=== PATIENT | male | born 1950 | race Caucasian/White ===

== ENCOUNTER 2024-08-05 12:08 | Inpatient (IN) | payer MEDICARE ==
[2024-08-05] VITALS (14 sets, daily range): BP systolic 116–151; BP diastolic 57–85; PULSE 83–120; RESP 14–23; TEMP 98.4; O2SAT 97–98
[~2024-08-05] VITALS: Ht 167.6 cm; Wt 68.5 kg
--- NOTE | 2024-08-05 12:24 | EKG ---
[facility] Test Date: 2024-08-05 Test Time: 12:18:02 Pat Name: ANDREEA JOSEPH Department: [facility] Room: 219 Gender: M Review Rn: [id number] : 1950 Requested By: SCOTT STEPHENS Order Number: [id number] Reading MD: Toy Randall Measurements Intervals [place] Rate: 157 P: 0 AR: 76 QRS: 33 QRSD: 94 T: -1 QT: 305 QTc: 492 Interpretive Statements Supraventricular tachycardia Repolarization abnormality, prob rate related No previous ECG available for comparison Electronically Signed On 08-08-2024 16:00:02 SHEEP KILLER by Toy Randall Please click the below link to view image of tracing.
[2024-08-05] MEDS: 0.9% NACL 500ML IV.SOLN 500 ML IV ONE (12:33)
--- NOTE | 2024-08-05 12:34 | ERN ---
ED Note History of Present Illness Stated Complaint: DEHYDRATED Chief Complaint: Nausea,Vomiting,Diarrhea Time Seen by MD: 12:14 Time Seen by Midlevel: 12:20 Dictation: Mr. Stevenson is a 74 year old gentleman (winter [place] from [place]) with history of atrial fibrillation, hypertension, hyperlipidemia, and type 2 diabetes who presented to the emergency department this afternoon for evaluation of tachycardia. He has been experiencing fatigue, general weakness, nauseas, and vomiting. He initially attributed symptoms to his medication; Ozempic. He has been seen multiple times at [facility] and was prescribed some Zofran. He continues with nausea/vomiting and has had diarrhea stool x 1. He went to the clinic today because his heart rate had increased to 130. He was told that they had no IV fluids for him there and that he would need to come to the hospital. He denies having fever, chills, shortness of breath,, chest pain, edema, abdominal pain, hematemesis, melena, hematochezia, dizziness, or headache. He has not taken any of his medications for 1 week. Allergies: Coded Allergies: No Known Allergies (Unverified Allergy, Unknown, 08/05/24) Past Medical History Social History: Negative, Other (Susan Chapin visiting from [place]) RN Note Reviewed/Agreed w/PFSH: Yes Review of System Dictation REVIEW OF SYSTEMS: CONSTITUTIONAL: Patient denies fevers, chills, sweats and weight changes. Reports fatigue and general weakness EYES: Patient denies any visual symptoms. EARS, NOSE, AND THROAT: No difficulties with hearing. No symptoms of rhinitis or sore throat. CARDIOVASCULAR: Patient denies chest pains, orthopnea and paroxysmal nocturnal dyspnea. Reports history of atrial fibrillation. States heart rate has increased today; ranging 80-130. RESPIRATORY: No dyspnea on exertion, no wheezing or cough. GI: No constipation, abdominal pain, hematochezia or melena. Reports nausea and vomiting times 10 days. States has had one diarrhea stool. States he attributed his symptoms to starting Ozempic. : No urinary hesitancy or dribbling. No nocturia or urinary frequency. No abnormal urethral discharge. MUSCULOSKELETAL: No myalgias or arthralgias. NEUROLOGIC: No chronic headaches, no seizures. Patient denies numbness, tingling or weakness. PSYCHIATRIC: Patient denies problems with mood disturbance. No problems with anxiety. ENDOCRINE: No excessive urination or excessive thirst. DERMATOLOGIC: Patient denies any rashes or skin changes. Initial Vital Sign VS Vital Signs Date Time Temp Pulse Resp B/P (MAP) Pulse Ox O2 Delivery O2 Flow Rate FiO2 08/05/24 12:11 97.5 128 18 130/86 96 Room Air 0 08/05/24 15:04 21 Physical Exam Dictation Vital signs: Reviewed. Constitutional: No acute distress. Non-toxic appearing. Head/Face: Normocephalic, atraumatic. Eyes: Periorbital areas with no swelling, redness, or edema. Lids and lashes are normal. Conjunctival injection is absent. Sclera anicteric. Pupils equal, round, reactive to light. ENT: Pinnas intact and no signs of trauma or erythema. Ear canals clear and no discharge. TMs no erythema. No nasal discharge or bleeding noted. Oropharynx with no exudate, redness, swelling, masses, exudates, or evidence of obstruction. Uvula midline. Mucous membranes moist. Neck: Trachea midline, no masses palpated, and no cervical lymphadenopathy. No swelling. Supple, full range of motion. Chest/Axilla: No tenderness, no crepitus, no paradoxical movement, no retractions. Cardiovascular: Irregular rate, regular rhythm, no murmur, no gallops. Symmetric pulses. No peripheral edema. Twelve lead EKG reflects atrial fibrillation with rapid ventricular response; rate 157. Normotensive. Respiratory: Respirations even and unlabored. Lung sounds clear; no wheezes, rales or rhonchi. Room air SpO2 98% Gastrointestinal: Inspection is normal. No distention is appreciated. Bowel sounds are normal. No mass or organomegaly . There is no tenderness. No rebound. No rigidity. No voluntary or involuntary guarding. No Garrett's sign. Neurological: Normal speech, gross motor function intact, gross sensory function intact. No focal weakness/Paresthesia. Musculoskeletal/Extremities: All extremities have full range of motion, no pain or tenderness on palpation. Symmetric pulses. Integumentary: Intact. Skin is normal color, warm and dry. Cap refill less than 3 seconds. IVF Sepsis Management BMI >30kg/m2?: Yes IVF calculated by IBW?: Yes Sepsis IVF contraindications?: NO Results (Laboratory/Radiology) Laboratory/Radiology Laboratory Tests Test 08/05/24 12:35 08/05/24 12:45 08/05/24 13:42 08/05/24 13:44 White Blood Count 15.9 K/uL (4.8-10.8) H Red Blood Count 6.30 MIL/uL (4.50-6.20) H Hemoglobin 20.2 g/dL (14.0-18.0) *H Hematocrit 58.2 % (42-54) H Mean Corpuscular Volume 92.4 fL (79-99) Mean Corpuscular Hemoglobin 32.1 pg (27.0-33.0) Mean Corpuscular Hemoglobin Concent 34.7 g/dL (32.0-36.0) Red Cell Distribution Width 13.0 % (11.0-15.5) Platelet Count 273 K/uL (130-400) Mean Platelet Volume 9.9 fL (7.5-10.5) Immature Granulocyte % (Auto) 0.4 % (0-1) Neutrophils (%) (Auto) 80.4 % (40.0-77.0) H Lymphocytes (%) (Auto) 12.6 % (21.0-51.0) L Monocytes (%) (Auto) 5.8 % (3.0-13.0) Eosinophils (%) (Auto) 0.5 % (0.0-8.0) Basophils (%) (Auto) 0.3 % (0.0-5.0) Neutrophils # (Auto) 12.8 K/uL (1.8-7.7) H Lymphocytes # (Auto) 2.0 K/uL (1.0-4.8) Monocytes # (Auto) 0.9 K/uL (0.1-1.0) Eosinophils # (Auto) 0.08 K/uL (0.00-0.70) Basophils # (Auto) 0.04 K/uL (0.00-0.20) Absolute Immature Granulocyte (auto 0.06 K/uL (0-1) Nucleated Red Blood Cells 0.0 % (0.0-0.19) Erythrocyte Sedimentation Rate 3 MM/HR (0-20) Prothrombin Time 12.2 SEC (9.6-11.6) H Prothromb Time International Ratio 1.10 (0.85-1.15) Activated Partial Thromboplast Time 28.5 SEC (26.3-35.5) Sodium Level 138 mmol/L (136-145) Potassium Level 4.5 mmol/L (3.5-5.1) Chloride Level 95 mmol/L (101-111) L Carbon Dioxide Level 21 mmol/L (21-32) Blood Urea Nitrogen 33 mg/dL (7-18) H Creatinine 1.6 mg/dL (0.5-1.3) H Glomerular Filtration Rate Calc 44 mL/min (>90) Random Glucose 344 mg/dL (70-105) H Hemoglobin A1c 7.3 % (4.0-6.0) H Estimated Average Glucose (eAG) 163 mg/dL (70-126) H Lactic Acid Level 4.1 mmol/L (0.8-2.5) H Total Calcium 9.7 mg/dL (8.5-10.1) Total Bilirubin 2.2 mg/dL (0.2-1.0) H Aspartate Amino Transf (AST/SGOT) 53 U/L (10-37) H Alanine Aminotransferase (ALT/SGPT) 92 U/L (12-78) H Alkaline Phosphatase 141 U/L (50-136) H Troponin I High Sensitivity 78 ng/L (4-75) *H B-Type Natriuretic Peptide 188 pg/mL (0-100) H Total Protein 8.7 g/dL (6.0-8.3) H Albumin 4.3 g/dL (3.5-5.0) Influenza Type A Antigen Negative For Type A Influenza Type B Antigen Negative For Type B SARS-CoV-2, RNA, NAAT NEGATIVE SARS CoV-2 Whole Blood Ketones Quantitative 6.7 mmol/L (0.0-0.6) H Uric Acid 9.7 mg/dL (2.6-7.2) H Phosphorus Level 4.3 mg/dL (2.5-4.9) Magnesium Level 2.30 mg/dL (1.80-2.40) Total Creatine Kinase 48 U/L (21-232) Procalcitonin < 0.05 ng/mL (0.05-0.5) L Thyroid Stimulating Hormone (TSH) 0.92 uIU/mL (0.36-3.74) Blood Gas Specimen Type Venous Arterial Blood Oxygen Saturation 91.8 % (94.0-98.0) L Venous Blood pH 7.318 (7.320-7.430) Venous Blood pCO2 at Patient Temp 25 (38-54) L Venous Blood pO2 at Patient Temp 62.9 mmHg (23.0-48.0) H Venous Blood HCO3 12.6 (22.0-29.0) L Venous Blood Base Excess -10.9 (-2.0-3.0) L Venous Blood Total Hemoglobin 20.4 (13.5-17.5) *H Sodium (Blood Gas) 140 MMOL/L (136-145) Bedside Potassium (Blood Gas) 4.6 MMOL/L (3.4-4.5) H Bedside Chloride (Blood Gas) 102 MMOL/L (98-107) Bedside Glucose (Blood Gas) 305 MG/DL (65-95) H Bedside Ionized Calcium (Blood Gas) 1.27 MMOL/L (1.15-1.33) Bedside Lactic Acid (Blood Gas) 3.22 MMOL/L (0.36-0.75) *H Blood Gas Temperature 37.0 CELSIUS (35.5-37.0) Blood Gas Vent Mode RA (ROOM AIR) FiO2 21.0 % Blood Gas Specimen Comment CLARK Test 08/05/24 14:14 08/05/24 15:01 08/05/24 16:02 08/05/24 16:21 Urine Color LIGHT-YELLOW (YELLOW) Urine Appearance CLEAR (CLEAR) Urine pH 5.5 (5.0-8.0) Urine Specific Atkins 1.029 (1.001-1.031) Urine Protein 50 mg/dL (NEGATIVE) H Urine Glucose (UA) >=1000 mg/dL (NEGATIVE) H Urine Ketones 100 mg/dL (NEGATIVE) H Urine Occult Blood NEGATIVE (NEGATIVE) Urine Nitrate NEGATIVE (NEGATIVE) Urine Bilirubin NEGATIVE mg/dL (NEGATIVE) Urine Urobilinogen 0.2 mg/dL (0.2-1.0) Urine Leukocyte Esterase NEGATIVE Long/uL Urine RBC 0-1 /HPF (0-1) Urine WBC 0-1 /HPF (0-1) Urine Bacteria None /HPF (None Seen) Urine Hyaline Casts 2-5 /LPF (0-1 /LPF) H Whole Blood Glucose 249 MG/DL (70-110) H 238 MG/DL (70-110) H Sodium Level 143 mmol/L (136-145) Potassium Level 4.0 mmol/L (3.5-5.1) Chloride Level 105 mmol/L (101-111) Carbon Dioxide Level 20 mmol/L (21-32) L Blood Urea Nitrogen 30 mg/dL (7-18) H Creatinine 1.3 mg/dL (0.5-1.3) Glomerular Filtration Rate Calc 57 mL/min (>90) Random Glucose 240 mg/dL (70-105) H Lactic Acid Level 2.2 mmol/L (0.8-2.5) Total Calcium 7.9 mg/dL (8.5-10.1) L Test 08/05/24 17:03 08/05/24 18:04 08/05/24 18:21 08/05/24 19:19 Whole Blood Glucose 241 MG/DL (70-110) H 232 MG/DL (70-110) H 205 MG/DL (70-110) H Activated Partial Thromboplast Time 35.0 SEC (26.3-35.5) Test 08/05/24 20:12 08/05/24 20:13 08/05/24 21:12 08/05/24 22:06 Whole Blood Glucose 203 MG/DL (70-110) H 160 MG/DL (70-110) H 138 MG/DL (70-110) H Sodium Level 142 mmol/L (136-145) Potassium Level 4.4 mmol/L (3.5-5.1) Chloride Level 107 mmol/L (101-111) Carbon Dioxide Level 23 mmol/L (21-32) Blood Urea Nitrogen 28 mg/dL (7-18) H Creatinine 1.2 mg/dL (0.5-1.3) Glomerular Filtration Rate Calc 63 mL/min (>90) Random Glucose 192 mg/dL (70-105) H Total Calcium 8.5 mg/dL (8.5-10.1) Test 08/05/24 23:02 08/06/24 00:22 08/06/24 01:12 08/06/24 02:12 Whole Blood Glucose 134 MG/DL (70-110) H 157 MG/DL (70-110) H 196 MG/DL (70-110) H 164 MG/DL (70-110) H Activated Partial Thromboplast Time > 139.0 SEC (26.3-35.5) Sodium Level 141 mmol/L (136-145) Potassium Level 4.1 mmol/L (3.5-5.1) Chloride Level 107 mmol/L (101-111) Carbon Dioxide Level 26 mmol/L (21-32) Blood Urea Nitrogen 23 mg/dL (7-18) H Creatinine 1.2 mg/dL (0.5-1.3) Glomerular Filtration Rate Calc 63 mL/min (>90) Random Glucose 172 mg/dL (70-105) H Total Calcium 8.1 mg/dL (8.5-10.1) L Test 08/06/24 03:09 08/06/24 05:10 08/06/24 05:11 08/06/24 06:36 Whole Blood Glucose 175 MG/DL (70-110) H 170 MG/DL (70-110) H 167 MG/DL (70-110) H White Blood Count 11.0 K/uL (4.8-10.8) #H Red Blood Count 4.57 MIL/uL (4.50-6.20) # Hemoglobin 14.5 g/dL (14.0-18.0) # Hematocrit 42.2 % (42-54) # Mean Corpuscular Volume 92.3 fL (79-99) Mean Corpuscular Hemoglobin 31.7 pg (27.0-33.0) Mean Corpuscular Hemoglobin Concent 34.4 g/dL (32.0-36.0) Red Cell Distribution Width 13.1 % (11.0-15.5) Platelet Count 121 K/uL (130-400) #L Mean Platelet Volume 10.7 fL (7.5-10.5) H Immature Granulocyte % (Auto) 0.3 % (0-1) Neutrophils (%) (Auto) 66.0 % (40.0-77.0) Lymphocytes (%) (Auto) 23.1 % (21.0-51.0) Monocytes (%) (Auto) 9.8 % (3.0-13.0) Eosinophils (%) (Auto) 0.5 % (0.0-8.0) Basophils (%) (Auto) 0.3 % (0.0-5.0) Neutrophils # (Auto) 7.3 K/uL (1.8-7.7) Lymphocytes # (Auto) 2.5 K/uL (1.0-4.8) Monocytes # (Auto) 1.1 K/uL (0.1-1.0) H Eosinophils # (Auto) 0.05 K/uL (0.00-0.70) Basophils # (Auto) 0.03 K/uL (0.00-0.20) Absolute Immature Granulocyte (auto 0.03 K/uL (0-1) Nucleated Red Blood Cells 0.0 % (0.0-0.19) Test 08/06/24 06:37 Activated Partial Thromboplast Time > 139.0 SEC (26.3-35.5) *H Labs Reviewed?: Yes EKG Comment: EKG Interpretation: Time Reviewed: 1218 Ventricular rate: [address] Interval: [] ms QRS duration: [] ms No ST segment elevation or depression. Clinical impression: atrial fibrillation with RVR EKG Reviewed and interpreted by Dr. Darron Stephens ED Course ED Course Orders Procedure Category Date Status Time Cbc With Differential LAB 08/05/24 Complete 12:12 Comprehensive LAB 08/05/24 Complete Metabolic Panel 12:12 Urinalysis Profile LAB 08/05/24 Complete 12:12 Influenza Type A & B, LAB 08/05/24 Complete Rapid 12:12 12 Lead Ekg Tracing- EKG 08/05/24 Complete Technical 12:17 0.9% Nacl 500ml PHA 08/05/24 Complete Iv.Soln (Ns 500ml 12:30 Lactic Acid LAB 08/05/24 Complete 12:24 Troponin I High LAB 08/05/24 Complete Sensitivity 12:24 12 Lead Ekg Tracing- EKG 08/05/24 Complete Technical 12:24 Metoprolol Tartrate PHA 08/05/24 Complete (Lopressor) 13:00 B-Type Natriuretic LAB 08/05/24 Complete Peptide 12:34 Covid Rna Naat LAB 08/05/24 Complete 12:38 0.9%Nacl 1000ml (Ns PHA 08/05/24 Complete 1000ml) 13:30 Zosyn 3.375gm+Ns 50ml PHA 08/05/24 Complete (Zosyn 3.375gm+Ns 13:30 Blood Cult AGUSTO 08/05/24 In Process 13:22 Pt And Ptt LAB 08/05/24 Complete 13:22 Npo Except For Ice CPOE 08/05/24 Transmitted Chips 13:22 Telemetry Monitoring CPOE 08/05/24 Transmitted 13:22 Admit Orders ADM 08/05/24 Transmitted 13:22 Erythrocyte LAB 08/05/24 Complete Sedimentation Rate 13:23 Ketone Blood LAB 08/05/24 Complete Quantitative 13:23 Venous Blood Gas + RT 08/05/24 Transmitted 13:23 Thiamine Hcl (Vitamin PHA 08/05/24 In Process B-1) 13:30 Cardiology Consult CONPHYSVC 08/05/24 Transmitted 13:23 Procalcitonin LAB 08/05/24 Complete 13:25 Ct Abdomen/Pelvis W/O CT 08/05/24 Resulted Contrast 13:25 M.V.I. Iv [Adult] PHA 08/05/24 Complete (M.V.I. Iv [Adult])... 14:00 Ct Head/Brain W/O CT 08/05/24 Resulted Contrast 13:25 Pantoprazole 40mg Inj PHA 08/05/24 In Process (Protonix 40mg Inj 13:30 Hemoglobin A1c LAB 08/05/24 Complete 13:27 Thyroid Stimulating LAB 08/05/24 Complete Hormone 13:27 Type And Screen BBK 08/05/24 Complete 13:27 Creatine Kinase, Total LAB 08/05/24 Complete 13:27 Chest 1vw RAD 08/05/24 Resulted 13:28 Fall Precautions CPOE 08/05/24 Transmitted 13:28 Aspiration Precautions CPOE 08/05/24 Transmitted 13:28 Elevate Hob At 30 CPOE 08/05/24 Transmitted Degrees 13:28 Ondansetron 4mg Inj PHA 08/05/24 In Process (Zofran 4mg Inj) 13:30 Acetaminophen 325 Tab PHA 08/05/24 In Process (Tylenol 325mg Tab 13:30 Scd Both Legs While CPOE 08/05/24 Transmitted In Bed 13:29 *Nursing CPOE 08/05/24 Transmitted Communication: 13:29 Magnesium LAB 08/05/24 Complete 13:30 Phosphorus LAB 08/05/24 Complete 13:30 Uric Acid LAB 08/05/24 Complete 13:30 Compound Iv PHA 08/05/24 In Process Refrigerated 14:00 Strict I&O CPOE 08/05/24 Transmitted 13:34 Daily Weights CPOE 08/05/24 Transmitted 13:34 Venous Blood Gas Plus LAB 08/05/24 Complete 13:44 Dka Prtcl:Restrict To CPOE 08/05/24 Transmitted Icu/Ccu 14:27 Dka Protcl:Dc All CPOE 08/05/24 Transmitted Meds/Feeding 14:27 Dka Protocol: Bmp Q4h CPOE 08/05/24 Transmitted Until 14:27 Basic Metabolic Panel LAB 08/05/24 Complete 16:00 Basic Metabolic Panel LAB 08/05/24 Complete 20:00 Basic Metabolic Panel LAB 08/06/24 Complete 00:00 0.9%Nacl 1000ml (Ns PHA 08/05/24 In Process 1000ml) 14:30 D5w-1/2 Ns/20meq Kcl PHA 08/05/24 In Process (D5w-1/2 Ns/20meq K 14:30 Potassium Chloride PHA 08/05/24 In Process 20meq/10ml (Kcl 20meq 14:30 Potassium Chloride PHA 08/05/24 In Process 10meq/100ml ([place] 14:30 Magnesium 2gm Premix PHA 08/05/24 In Process 50ml (Magnesium 2gm 14:30 Insulin Regular, PHA 08/05/24 In Process Human 3ml (Humulin R 14:30 Dka Protocol: Bs, Vs, CPOE 08/05/24 Transmitted Neuro 14:27 Dextrose 5 %-0.45 % PHA 08/05/24 In Process Nacl (D5 1/2ns) 14:30 Critcal Care Consult CONPHYSVC 08/05/24 Transmitted 14:27 Transfer To: CPOE 08/05/24 Transmitted 14:27 Endocrinology Consult CONPHYSVC 08/05/24 Transmitted 14:30 Pharmacy To Renal PHA 08/05/24 Complete Dose (Renal Dose) 15:00 Zosyn 3.375gm+Ns 50ml PHA 08/05/24 Complete (Zosyn 3.375gm+Ns 15:00 0.9%Nacl 50ml (Ns PHA 08/05/24 Complete 50ml) 15:02 Zosyn 3.375gm+Ns 50ml PHA 08/05/24 In Process (Zosyn 3.375gm+Ns 21:00 Glutamic Acid LAB 08/05/24 In Process Decarboxylase Ab 16:00 Us Abdominal Ruq\Ltd US 08/05/24 Resulted 15:14 Lactic Acid (Removed) LAB 08/05/24 Complete 15:48 Initiate Heparin PRICE 08/05/24 In Process Treatment Pro 16:02 Partial LAB 08/05/24 Complete Thromboplastin Time 16:02 Heparin 25,000 PHA 08/05/24 In Process Units/250ml D5w 17:00 Heparin Protocol CPOE 08/05/24 Transmitted Monitoring 16:02 Insulin PHA 08/05/24 In Process Hum. [email or web address] 21:00 Cbc With Differential LAB 08/07/24 Verified 09:00 Cbc With Differential LAB 08/08/24 Verified 09:00 Cbc With Differential LAB 08/09/24 Verified 09:00 Metoprolol Tartrate PHA 08/05/24 In Process (Lopressor) 18:30 Aspirin 81mg Ec Tab PHA 08/06/24 In Process (Aspirin 81mg Ec Tab 09:00 Atorvastatin 20mg PHA 08/06/24 In Process (Lipitor 20mg) 21:00 Partial LAB 08/06/24 Complete Thromboplastin Time 00:30 Heparin 5,000 Unit PHA 08/05/24 Complete Vial (Heparin 5,000 U 19:00 Lactated Ringers PHA 08/05/24 In Process 1000ml (Lactated 19:00 Cbc With Differential LAB 08/06/24 Complete 04:00 Cardiac Panel LAB 08/06/24 In Process 04:00 Clear Liquid DIET 08/06/24 Transmitted Breakfast Pt Eval And Treat PT 08/05/24 Transmitted 19:43 Basic Metabolic Panel LAB 08/06/24 In Process 04:00 Partial LAB 08/06/24 Complete Thromboplastin Time 06:30 Current Medications Medications (Trade) Dose Ordered Sig/Maegan Route PRN Reason Start Time Stop Time Status Last Admin Dose Admin Metoprolol Tartrate (loprESSOR) 5 mg ONCE ONCE IV 08/05/24 13:00 08/05/24 13:01 DC 08/05/24 12:51 Sodium Chloride 500 ml @ 0 mls/hr ONCE ONCE IV 08/05/24 12:30 08/05/24 12:31 DC 08/05/24 12:33 Vital Signs Date Time Temp Pulse Resp B/P (MAP) Pulse Ox O2 Delivery O2 Flow Rate FiO2 08/06/24 02:00 85 18 122/69 97 Room Air 08/06/24 01:00 84 16 125/68 98 Room Air 08/06/24 00:30 83 16 126/66 98 Room Air 08/06/24 00:00 98 Room Air* 0 21 08/06/24 00:00 99.0 83 17 136/71 98 Room Air 08/05/24 23:30 84 16 118/64 97 Room Air 08/05/24 23:00 84 17 116/66 97 Room Air 08/05/24 22:30 83 17 117/65 99 Room Air 08/05/24 22:00 87 18 122/68 97 Room Air 08/05/24 21:30 84 19 117/65 98 Room Air 08/05/24 21:00 86 16 132/75 98 Room Air 08/05/24 20:33 98 Room Air* 0 08/05/24 20:30 83 16 128/72 97 Room Air 08/05/24 20:00 98.4 83 17 124/68 99 Room Air 08/05/24 19:30 98 19 131/57 99 Room Air 08/05/24 19:15 92 17 125/81 98 Room Air 08/05/24 19:00 93 16 138/71 97 Room Air 08/05/24 17:30 113 14 137/73 96 08/05/24 17:00 120 23 151/85 98 Room Air 08/05/24 17:00 97 Room Air* 0 08/05/24 16:05 97.5 96 20 136/76 96 Room Air* 0 08/05/24 15:04 97.7 92 20 127/79 100 Room Air* 0 08/05/24 12:51 154 08/05/24 12:11 97.5 128 18 130/86 96 Room Air 0 Patient arrived tachycardic with atrial fibrillation/ventricular rate 154. He appears quite dehydrated with dry mucous membranes. NS bolus 30 mL/kilogram ideal body weight initiated. Laboratory findings as noted below. WBCs 15.9, initial lactic acid 4.1, H/H 20.2/58.2, Cl 95, BUN/CR 33/1.6, glucose 344, total bili 2.2, ALP 141, ALT/AST 92/53, and total protein 8.5. Received initial dose Zosyn. Findings were discussed with Dr. Bull Hensley who [facility] Medical Decision Making MDM MDM: Differential diagnosis: Sepsis, dehydration, influenza a/B, A fib RVR Rationale: Tests considered and ordered secondary to shared decision making include: labs, ECG and radiology Previous outside records reviewed: Old ER visits. Risk of complication and/or morbidity or mortality of patient management: None Medications-Per medication reconciliation Need for hospitalization: Patient does meet criteria for hospitalization. Need for emergency major/minor surgery: No There are no social concerns with this patient. Prescription drug management Prescriptions will include symptomatic care Patient's prior external medical records from other ER visits were reviewed by me as indicated. Prior testing and results from previous visits were reviewed. Prior tests were taken into account with medical decision making and resource utilization, independent historian/historians were used to obtain complete medical history. I independently interpreted the test that were performed, results were reviewed by me and considered findings on radiology if ordered. Medical management and examination interpretation discussions were had by me with other qualified healthcare professionals as indicated for the patient's care. DX & DISP Disposition: Inpatient Departure Impression: Primary Impression: Sepsis Additional Impressions: Atrial fibrillation with rapid ventricular response, Nausea & vomiting, INDU (acute kidney injury), Leukocytosis, Type 2 diabetes mellitus with hyperglycemia Condition: Stable Assign Patient to: Dr. Bull Hensley ATTESTATION BY PHYSICIAN I PERFORMED THE SUBSTANTIVE PORTION OF THE VISIT. I HAVE REVIEWED AND PERSONALLY MADE AND APPROVED THE MANAGEMENT PLAN THAT IS DOCUMENTED IN THE NOTE BY MYSELF FOR THE A PP. I ACKNOWLEDGED FOR RESPONSIBILITY FOR THE PATIENT'S MANAGEMENT PLAN. MUSTAPHA MIXON NP Aug 05, 2024 12:34 SCOTT STEPHENS MD Aug 06, 2024 07:42
[2024-08-05 12:47] LABS: BASOPHILS # (AUTO) 0.04 K/uL (0.00-0.20); BASOPHILS % (AUTO) 0.3 % (0.0-5.0); EOSINOPHILS # (AUTO) 0.08 K/uL (0.00-0.70); EOSINOPHILS % (AUTO) 0.5 % (0.0-8.0); HEMATOCRIT 58.2 % (42-54); IMMATURE GRANULOCYTE ABSOLUTE 0.06 K/uL (0-1); LYMPHOCYTES % (AUTO) 12.6 % (21.0-51.0); MEAN CORPUSCULAR HEMOGLOBIN 32.1 pg (27.0-33.0); MEAN CORPUSCULAR HGB CONC 34.7 g/dL (32.0-36.0); MEAN CORPUSCULAR VOLUME 92.4 fL (79-99); MONOCYTES # (AUTO) 0.9 K/uL (0.1-1.0); MONOCYTES % (AUTO) 5.8 % (3.0-13.0); NEUTROPHILS # (AUTO) 12.8 K/uL (1.8-7.7); NEUTROPHILS % (AUTO) 80.4 % (40.0-77.0); PLATELET COUNT (AUTO) 273 K/uL (130-400); WHITE BLOOD COUNT (AUTO) 15.9 K/uL (4.8-10.8)
[2024-08-05] MEDS: metoPROLOL tartRATE 1 MG/ML 5ML VIAL IV ONE (12:51)
--- NOTE | 2024-08-05 12:53 | NUR ---
CODE SEPSIS ACTIVATED
[2024-08-05 12:55] LABS: CREATININE 1.6 mg/dL (0.5-1.3); POTASSIUM 4.5 mmol/L (3.5-5.1)
--- NOTE | 2024-08-05 12:55 | NUR ---
HEMOGLOBIN-20.2 ERMD MADE AWARE
[2024-08-05 13:00] LABS: ALBUMIN 4.3 g/dL (3.5-5.0); BILIRUBIN,TOTAL 2.2 mg/dL (0.2-1.0); TOTAL PROTEIN, SERUM 8.7 g/dL (6.0-8.3)
[2024-08-05 13:20] LABS: SARS-CoV-2, RNA, NAAT NEGATIVE SARS CoV-2 (NEGATIVE)
--- NOTE | 2024-08-05 13:22 | EKG ---
[facility] Test Date: 2024-08-05 Test Time: 13:18:03 Pat Name: ANDREEA JOSEPH Department: [facility] Room: 219 Gender: M [employer] Director: [id number] : 1950 Requested By: MUSTAPHA MIXON Order Number: [id number] Reading MD: Toy Randall Measurements Intervals [place] Rate: 108 P: 0 LA: 0 QRS: 29 QRSD: 90 T: 34 QT: 366 QTc: 492 Interpretive Statements Atrial fibrillation Compared to ECG 08/05/2024 12:18:02 Supraventricular tachycardia no longer present Early repolarization no longer present Electronically Signed On 08-08-2024 16:00:19 OSTOMY CARE NURSE by Toy Randall Please click the below link to view image of tracing.
[2024-08-05 13:24] LABS: INFLUENZA TYPE A Negative For Type A (NEGATIVE); INFLUENZA TYPE B Negative For Type B (NEGATIVE)
[2024-08-05] MEDS ORDERED: acetaMINOPHEN 325 MG TAB PO PRN (13:30)
--- NOTE | 2024-08-05 13:41 | HP ---
[facility] PH[facility] Date of Service: Aug 05, 2024 Time of Service: 13:41 HISTORY OF PRESENT ILLNESS: Date of service: 08/05/2024, patient was seen in ER 11 74-year-old male with underlying history of hypertension, atrial fibrillation, type 2 diabetes mellitus, hyperlipidemia, history of coronary artery disease with prior history of multivessel CABG, presented to the ER for further evaluation of nausea, vomiting and poor oral intake. Symptoms have been ongoing for the past nine days with no significant improvement. Patient was seen as outpatient and was started on antiemetic with Zofran. He followed up today at [facility] clinic with no significant improvement of symptoms. He has lost about 19 lb over the nice nine days. Reports having diarrhea about five days ago and since then he has not had a bowel movement. Patient has a history of type 2 diabetes mellitus, and he is maintained on outpatient regimen with metformin, glipizide, Jardiance, and also Ozempic. Last dose of Ozempic was about two weeks ago. He has not been able to take any oral medication for about a week including metoprolol which he takes for atrial fibrillation. Denies being on outpatient anticoagulation. Reports he was diagnosed with atrial fibrillation after he had coronary artery bypass grafting about 11-12 years ago. On presentation to the hospital, patient was noted to be afebrile with heart rate trending between 120s-150s. Patient was noted to be in atrial fibrillation with RVR. [place] [address], hemoglobin of 20.2, platelet count of [id number]. CMP remarkable for sodium of 138, potassium 4.5, creatinine of 1.6, lactic acid of 4.1, high sensitivity cardiac troponin of 78, AST of 53, ALT of 92, alkaline phosphatase of 141. Chest x-ray showed no acute infiltrates. REVIEW OF SYSTEMS CONSTITUTIONAL: Asthenia, malaise, weight loss NEUROLOGICAL: Denies headache, amaurosis fugax, motor weakness, sensory deficit, vertigo/spinning sensation, gait abnormalities, or tremors. ENT: No hearing loss, otalgia, otorrhea, rhinitis, rhinorrhea, hoarseness, or sore throat. CARDIOVASCULAR: Denies any exertional angina, dyspnea on exertion, orthopnea, paroxysmal nocturnal dyspnea, palpitations, life-threatening arrhythmias, claudication. PULMONARY: Denies any shortness of breath, cough, phlegm/sputum, hemoptysis, pleuritic chest pain. SLEEP: Denies morning headaches, daytime somnolence or napping. Denies difficulty falling asleep, staying asleep, waking from sleep. Denies knowledge of snoring. GASTROINTESTINAL: Nausea and vomiting for more than a week, unable to tolerate any oral intake GENITOURINARY: Denies frequency, urgency, nocturia, hematuria or incontinence (Storage/Irritative symptoms.) Low urinary stream, straining to void, urinary intermittency or hesitancy, splitting of the voiding stream, terminal dribbling. ENDOCRINOLOGIC: Denies polyuria, polydipsia, polyphagia or heat/cold intolerances. HEMATOLOGIC: Denies thrombophilia/previous clots, or coagulopathy/bleeding disorders. ONCOLOGIC: Denies personal history of malignancy. DERMATOLOGIC: Denies rashes or pruritus. PSYCHIATRIC: Denies any suicidal or homicidal ideation. Denies hallucinations. PAST MEDICAL HISTORY: Hypertension, hyperlipidemia, coronary artery disease, atrial fibrillation, type 2 diabetes mellitus PAST SURGICAL HISTORY: History of coronary artery bypass grafting, about 12 years ago PAST SOCIAL HISTORY: Patient is from [place], visiting [facility], patient denies active smoking or alcohol consumption FAMILY HISTORY: Denies pertinent family history Allergies: Patient reports allergic reaction to erythromycin Medications: will be bringing home medication list to be reconciled and updated Coded Allergies: No Known Allergies (Unverified Allergy, Unknown, 08/05/24) PHYSICAL EXAM GENERAL APPEARANCE: Patient is awake and alert, appears very frail NEUROLOGICAL: Cranial nerves II-XII grossly intact. Motor is 5/5 in bilateral upper and lower extremities proximal to distal. No sensory deficits. HEENT: Oral mucosa is very dry NECK: Supple. No JVD. No thyromegaly. No submental, submandibular, pre- /postauricular, occipital or supraclavicular lymphadenopathy. CHEST: Normal chest expansion. No Telemetry. LUNGS: Absence of any rales, rhonchi or any wheezing. CARDIOVASCULAR: Regular. S1 and S2 normal. No appreciable rubs, murmurs or gallops. ABDOMEN: Soft, nontender, and nondistended. No significant tenderness noted : Deferred. No Wheeler. EXTREMITIES: Non-edematous and not cyanotic. No clubbing. Good capillary refill. SKIN: No skin breakdown. Vital Sign (Last 24 Hours) 08/05/24 08/05/24 12:11 12:51 Temp 97.5 Pulse 154 Resp 18 B/P (MAP) 130/86 Pulse Ox 96 O2 Delivery Room Air O2 Flow Rate 0 LABS: Laboratory: Test 08/05/24 12:45 08/05/24 12:35 Range/Units Influenza Type A Antigen Negative For Type A NEGATIVE Influenza Type B Antigen Negative For Type B NEGATIVE SARS-CoV-2, RNA, NAAT NEGATIVE SARS CoV-2 NEGATIVE White Blood Count 15.9 H 4.8-10.8 K/uL Red Blood Count 6.30 H 4.50-6.20 MIL/uL Hemoglobin 20.2 *H 14.0-18.0 g/dL Hematocrit 58.2 H 42-54 % Mean Corpuscular Volume 92.4 79-99 fL Mean Corpuscular Hemoglobin 32.1 27.0-33.0 pg Mean Corpuscular Hemoglobin Concent 34.7 32.0-36.0 g/dL Red Cell Distribution Width 13.0 11.0-15.5 % Platelet Count 273 130-400 K/uL Mean Platelet Volume 9.9 7.5-10.5 fL Immature Granulocyte % (Auto) 0.4 0-1 % Neutrophils (%) (Auto) 80.4 H 40.0-77.0 % Lymphocytes (%) (Auto) 12.6 L 21.0-51.0 % Monocytes (%) (Auto) 5.8 3.0-13.0 % Eosinophils (%) (Auto) 0.5 0.0-8.0 % Basophils (%) (Auto) 0.3 0.0-5.0 % Neutrophils # (Auto) 12.8 H 1.8-7.7 K/uL Lymphocytes # (Auto) 2.0 1.0-4.8 K/uL Monocytes # (Auto) 0.9 0.1-1.0 K/uL Eosinophils # (Auto) 0.08 0.00-0.70 K/uL Basophils # (Auto) 0.04 0.00-0.20 K/uL Absolute Immature Granulocyte (auto 0.06 0-1 K/uL Nucleated Red Blood Cells 0.0 0.0-0.19 % Sodium Level 138 136-145 mmol/L Potassium Level 4.5 3.5-5.1 mmol/L Chloride Level 95 L 101-111 mmol/L Carbon Dioxide Level 21 21-32 mmol/L Blood Urea Nitrogen 33 H 7-18 mg/dL Creatinine 1.6 H 0.5-1.3 mg/dL Glomerular Filtration Rate Calc 44 >90 mL/min Random Glucose 344 H 70-105 mg/dL Lactic Acid Level 4.1 H 0.8-2.5 mmol/L Total Calcium 9.7 8.5-10.1 mg/dL Total Bilirubin 2.2 H 0.2-1.0 mg/dL Aspartate Amino Transf (AST/SGOT) 53 H 10-37 U/L Alanine Aminotransferase (ALT/SGPT) 92 H 12-78 U/L Alkaline Phosphatase 141 H 50-136 U/L Troponin I High Sensitivity 78 *H 4-75 ng/L Total Protein 8.7 H 6.0-8.3 g/dL Albumin 4.3 3.5-5.0 g/dL Current Medications Medications (Trade) Dose Ordered Sig/Maegan Route PRN Reason Start Time Stop Time Status Last Admin Dose Admin Acetaminophen (TYLenol 325MG TAB) 650 mg Q6H PRN PO MILD PAIN (1-3) 08/05/24 13:30 09/04/24 13:29 Multivitamins/ Minerals 10 ml/ Folic Acid 1 mg/ Thiamine HCl 100 mg/Sodium Chloride 1,010 ml @ 100 mls/hr DAILY IV 08/05/24 14:00 08/07/24 13:59 Ondansetron HCl (zoFRAN 4MG INJ) 4 mg Q6H PRN IVP NAUSEA/VOMITING 08/05/24 13:30 09/04/24 13:29 Pantoprazole Sodium (PROTonix 40MG INJ) 40 mg Q24H IVP 08/05/24 13:30 09/04/24 13:29 Thiamine HCl (Vitamin B-1) 200 mg Q24H IVP 08/05/24 13:30 09/04/24 13:29 DIAGNOSTICS / RADIOLOGY: SERVICE 1328 REASON: assess for any signficant infiltrates ORDERING PHYSICIAN: BULL HENSLEY MD PROCEDURE: CXR1VW - CHEST 1VW CHEST 1VW REASON: assess for any signficant infiltrates COMPARISON: None. FINDINGS: Lungs are free of mass or infiltrate. There is a bleb or bulla present in the right midlung. There are mildly increased interstitial markings. Heart size is normal. There is no vascular congestion or pleural effusion. There is been a previous median sternotomy. IMPRESSION: 1. Probable bleb or bulla in the right midlung. 2. No acute finding seen in the chest. DICTATED BY: TIM HUITRON MD DATE: 08/05/241400 ELECTRONICALLY SIGNED BY: TIM HUITRON MD DATE: 08/05/241403 ASSESSMENT: Acute diabetic ketoacidosis, POA Severe dehydration with hemoconcentration, POA Atrial fibrillation with RVR, POA Acute kidney injury, POA Severe protein calorie malnutrition, POA History of SGLT2 inhibitor use as outpatient (Jardiance), POA History of Ozempic use as outpatient, POA Demand ischemia, POA Mild hepatitis, POA Leukocytosis, POA Debility/frailty, POA Intractable nausea and vomiting times nine days, POA Hypertension, POA Hyperlipidemia, POA PLAN: Will be admitted to ICU Patient will be initiated insulin infusion for management of DKA, IV fluids per DKA protocol Broad-spectrum antibiotics with IV Zosyn, all medications will be renally dose, abx can be stopped in cultures remain negative in 48 hours We will obtain a CT abdomen pelvis without contrast for further evaluation Patient will be kept NPO, we will start patient on thiamine supplementation We will consult hot metal mixer operator, and Endocrinology We will check Hgb a1c, rocky 65 antibody level Jardiance will be stopped due to DKA, ozempic will need to be stopped as well due to significant weight loss, patient will need basal therapy with lantus as outpatient BMP will be checked q.4 hours while on insulin infusion Atrial fibrillation with RVR is likely secondary to severe dehydration, we will have Cardiology follow up, appreciate recommendations, start a/c with heparin gtt, will transition to po eliquis once able to tolerate po intake Medications will be reconciled and updated once available We will see how patient progresses in the next 48-72 hours Date of service: 08/05/2024 Critical care minutes: 60 minutes Plan of care was discussed with patient and at bedside, Bull Hensley MD Advanced Care Planning: Which of the following were discussed: Hospice care: Yes __ No _X_ Therapeutic options: Yes _X_ No __ Advance directives: Yes _X_ No __ Other discussions: Discussed with who?: Patient Voluntary nature of this service was explained to the patient? Yes _x_ No __ Amount of time spent: 20 minutes ) BULL HENSLEY MD Aug 05, 2024 13:41
[2024-08-05] MEDS: PANTOPrazole 40 MG/VIAL IVP SCH (13:42)
[2024-08-05] MEDS: THIAMINE HCL 100 MG/ML 2ML VIAL IVP SCH (13:44)
[2024-08-05] MEDS: 0.9%NACL 1000ML 1,000 ML IV ONE (13:45)
[2024-08-05 13:46] LABS: ABG OXYGEN SATURATION 91.8 % (94.0-98.0); BASE EXCESS,VENOUS BLOOD GAS -10.9 (-2.0-3.0); HCO3,VENOUS BLOOD GAS 12.6 (22.0-29.0); PCO2,VENOUS BLOOD GAS 25 (38-54); PH,VENOUS BLOOD GAS 7.318 (7.320-7.430); PO2,VENOUS BLOOD GAS 62.9 mmHg (23.0-48.0); VENT MODE, BG RA (ROOM AIR)
[2024-08-05] MEDS ORDERED: COMPOUND IV REFRIGERATED 1 EACH IVSOLN MISC PRN (14:00)
[2024-08-05] MEDS ORDERED: M.V.I. IV [ADULT] 10 ML, FOLic ACID 5 MG/ML VIAL 1 MG, THIAMINE HCL 100 MG in 0.9%NACL ... IV SCH (14:00)
--- NOTE | 2024-08-05 14:04 | HMCIMG ---
CHEST 1VW REASON: assess for any signficant infiltrates COMPARISON: None. FINDINGS: Lungs are free of mass or infiltrate. There is a bleb or bulla present in the right midlung. There are mildly increased interstitial markings. Heart size is normal. There is no vascular congestion or pleural effusion. There is been a previous median sternotomy. IMPRESSION: 1. Probable bleb or bulla in the right midlung. 2. No acute finding seen in the chest.
[2024-08-05 14:05] LABS: HEMOGLOBIN A1C 7.3 % (4.0-6.0); INR 1.1 (0.85-1.15); PROTHROMBIN TIME 12.2 SEC (9.6-11.6)
[2024-08-05 14:07] LABS: PARTIAL THROMBOPLASTIN TIME 28.5 SEC (26.3-35.5)
[2024-08-05 14:28] LABS: THYROID STIMULATING HORMONE 0.92 uIU/mL (0.36-3.74)
[2024-08-05] MEDS ORDERED: 0.9%NACL 1000ML 1,000 ML IV SCH (14:30)
[2024-08-05] MEDS ORDERED: MAGNESIUM 2GM PREMIX 50ML 50 ML IV SCH (14:30)
[2024-08-05] MEDS ORDERED: PoTASSium chloRIDE 20MEQ/10ML 20 MEQ in 0.9%NACL 1000ML 1,000 ML IV SCH (14:30)
[2024-08-05] MEDS ORDERED: DEXTROSE 5 %-0.45 % NACL 1,000 ML IV SCH (14:30)
[2024-08-05] MEDS: ZOSYN 3.375GM +NS 50ML IVPB ONE (14:42)
--- NOTE | 2024-08-05 14:45 | HMCIMG ---
Exam: NONCONTRAST CT BRAIN REASON: intractable nausea and vomiting x 1 week. COMPARISON: None. TECHNIQUE: Images are obtained from vertex to the skull base. The exam was performed without IV contrast. FINDINGS: There is normal appearing brain parenchyma. There are no focal mass lesions. There is is no evidence of intracranial hemorrhage or acute stroke. Ventricles and sulci appear normal. Posterior fossa and brainstem structures are unremarkable. Paranasal sinuses and remaining extracranial soft tissues appear normal as well. IMPRESSION: 1. Normal noncontrast CT brain. CT was performed with one or more following dose reduction techniques: automated exposure control, adjustment of the mA and kv according to patient's size, or use of a iterative reconstruction technique.
--- NOTE | 2024-08-05 14:49 | HMCIMG ---
CT ABDOMEN/PELVIS W/O CONTRAST REASON: intractable nausea and vomiting x 1 week COMPARISON: Grossly FINDINGS: Lung bases are clear. There are no focal liver lesions. There are normal-appearing kidneys.. Spleen and pancreas appear unremarkable. There are multiple very small stones present within the gallbladder, there is no wall thickening or edema. Intrahepatic biliary tree does not appear distended. Bowel loops appear unremarkable. There is no CT evidence of acute appendicitis. There is no evidence of free fluid or intraperitoneal air. There are no focal fluid collections. Aorta and retroperitoneum appear normal as do pelvic soft tissue structures. The anterior abdominal wall is intact. Osseous structures appear unremarkable. IMPRESSION: 1. Multiple small stones present within an otherwise normal-appearing gallbladder. 2. Otherwise unremarkable CT abdomen and pelvis. CT was performed with one or more following dose reduction techniques: automated exposure control, adjustment of the mA and kv according to patient's size, or use of a iterative reconstruction technique.
[2024-08-05] MEDS ORDERED: RENAL DOSE IV SCH (15:00)
[2024-08-05] MEDS ORDERED: ZOSYN 3.375GM +NS 50ML IVPB SCH (15:00)
[2024-08-05 15:23] LABS: APPEARANCE,URINE CLEAR (CLEAR); BILIRUBIN,URINE NEGATIVE (NEGATIVE); COLOR,URINE LIGHT-YELLOW (YELLOW); GLUCOSE, URINE (UA) >=1000 mg/dL (NEGATIVE); KETONES,URINE 100 mg/dL (NEGATIVE); LEUKOCYTE ESTERASE ,URINE NEGATIVE Leu/uL (NEGATIVE); NITRATE,URINE NEGATIVE (NEGATIVE); OCCULT BLOOD,URINE NEGATIVE (NEGATIVE); PH,URINE 5.5 (5.0-8.0); PROTEIN,URINE 50 mg/dL (NEGATIVE); UROBILINOGEN,URINE 0.2 mg/dL (0.2-1.0)
[2024-08-05 15:24] LABS: ADD UA MICROSCOPIC YES
[2024-08-05 15:25] LABS: MUCUS,URINE RARE LPF (None Seen); RBC,URINE 0-1 /HPF (0-1); WBC,URINE 0-1 /HPF (0-1)
[2024-08-05 15:50] LABS: MAGNESIUM 2.3 mg/dL (1.80-2.40); PHOSPHORUS 4.3 mg/dL (2.5-4.9); URIC ACID 9.7 mg/dL (2.6-7.2)
--- NOTE | 2024-08-05 16:18 | NUR ---
[facility] [employer] SUPER[employer] MADE AWARE OF CONSULT NO FURTHER ORDERS
[2024-08-05 17:06] LABS: CREATININE 1.3 mg/dL (0.5-1.3)
[2024-08-05] MEDS: ondanSETRON 4MG INJ IVP PRN (17:10)
[2024-08-05] MEDS: INSULIN REGULAR, HUMAN 3ML 100 UNIT in 0.9%NACL 100ML 100 ML IV SCH (17:10)
[2024-08-05] MEDS: D5W-1/2 NS/20MEQ KCL 1,000 ML IV SCH (17:15)
--- NOTE | 2024-08-05 18:25 | CONS ---
Cardiology Consult Note Cardiology Attending: John Hernández Consulting Physician: Hospitalist Date of Service: 08/05/24 Reason for Consult: Atrial fibrillation with RVR HPI: This is a 74-year-old male with a past medical history of CAD, status post CABG, paroxysmal atrial fibrillation, not on anticoagulation, DM2, and HLP who presents with nausea and vomiting, of 10 days in duration. The symptoms began after the patient ate barbecue and over the ensuing 10 days his symptoms have remained constant. Associated symptoms include generalized weakness/fatigue, dizziness, decreased p.o. intake, and diarrhea. Pertinent negatives include fever, chills, headache, syncope, chest pain, chest pressure, palpitations, shortness or breath, PND, orthopnea, weight gain, or lower extremity swelling/edema. The persistence of symptoms prompted the patient to come to the hospital where he was found to be severely volume depleted, hemoconcentrated, with an acute kidney injury, and in DKA. Additionally the patient was found to be in paroxysmal atrial fibrillation with RVR. Cardiology was consulted for treatment recommendations regarding the arrhythmia. PMH: listed above PSH: listed above FH: Significant for CAD, HTN, and DMII. SH: Denies alcohol, tobacco, or illicit drug use. Allergies: Coded Allergies: No Known Allergies (Unverified Allergy, Unknown, 08/05/24) Review of systems: General: Denies fever or chills HEENT: Denies changes in vision, earache or sore throat Neck: Denies pain or stiffness Cardio: As per the HPI Pulm: Denies SOB, coughing or wheezing GI: As per the HPI. MSK: Denies muscle or back pain. Heme: Denies anemia, easy bruising, or bleeding. Neuro: As per the HPI. Psych: Denies anxiety or depression. Physical Exam: Vital Signs Date Time Temp Pulse Resp B/P (MAP) Pulse Ox O2 Delivery O2 Flow Rate FiO2 08/05/24 17:30 113 14 137/73 96 08/05/24 17:00 Room Air 08/05/24 17:00 0 21 08/05/24 16:05 97.5 General: Visibly lethargic, but responds to verbal command. NAD HEENT: NC/AT. Oral mucosa is dry Neck: No masses, JVD, or carotid bruits Lungs: NRD. SCM. B/L CTA. No wheezing, rales or rhonchi. Cardio: Irregularly irregular rate and rhythm. Abdomen: Soft. NT. ND. Normal active bowel sounds x 4 quadrants. Extremities: No edema, clubbing or cyanosis. +2 pulses noted throughout. Neuro: CN II-XII were grossly intact. No focal deficits. Labs: Laboratory Tests Test 08/05/24 12:35 08/05/24 12:45 08/05/24 13:42 08/05/24 13:44 Range/Units White Blood Count 15.9 H 4.8-10.8 K/uL Red Blood Count 6.30 H 4.50-6.20 MIL/uL Hemoglobin 20.2 *H 14.0-18.0 g/dL Hematocrit 58.2 H 42-54 % Mean Corpuscular Volume 92.4 79-99 fL Mean Corpuscular Hemoglobin 32.1 27.0-33.0 pg Mean Corpuscular Hemoglobin Concent 34.7 32.0-36.0 g/dL Red Cell Distribution Width 13.0 11.0-15.5 % Platelet Count 273 130-400 K/uL Mean Platelet Volume 9.9 7.5-10.5 fL Immature Granulocyte % (Auto) 0.4 0-1 % Neutrophils (%) (Auto) 80.4 H 40.0-77.0 % Lymphocytes (%) (Auto) 12.6 L 21.0-51.0 % Monocytes (%) (Auto) 5.8 3.0-13.0 % Eosinophils (%) (Auto) 0.5 0.0-8.0 % Basophils (%) (Auto) 0.3 0.0-5.0 % Neutrophils # (Auto) 12.8 H 1.8-7.7 K/uL Lymphocytes # (Auto) 2.0 1.0-4.8 K/uL Monocytes # (Auto) 0.9 0.1-1.0 K/uL Eosinophils # (Auto) 0.08 0.00-0.70 K/uL Basophils # (Auto) 0.04 0.00-0.20 K/uL Absolute Immature Granulocyte (auto 0.06 0-1 K/uL Nucleated Red Blood Cells 0.0 0.0-0.19 % Erythrocyte Sedimentation Rate 3 0-20 MM/HR Prothrombin Time 12.2 H 9.6-11.6 SEC Prothromb Time International Ratio 1.10 0.85-1.15 Activated Partial Thromboplast Time 28.5 26.3-35.5 SEC Sodium Level 138 136-145 mmol/L Potassium Level 4.5 3.5-5.1 mmol/L Chloride Level 95 L 101-111 mmol/L Carbon Dioxide Level 21 21-32 mmol/L Blood Urea Nitrogen 33 H 7-18 mg/dL Creatinine 1.6 H 0.5-1.3 mg/dL Glomerular Filtration Rate Calc 44 >90 mL/min Random Glucose 344 H 70-105 mg/dL Hemoglobin A1c 7.3 H 4.0-6.0 % Estimated Average Glucose (eAG) 163 H 70-126 mg/dL Lactic Acid Level 4.1 H 0.8-2.5 mmol/L Total Calcium 9.7 8.5-10.1 mg/dL Total Bilirubin 2.2 H 0.2-1.0 mg/dL Aspartate Amino Transf (AST/SGOT) 53 H 10-37 U/L Alanine Aminotransferase (ALT/SGPT) 92 H 12-78 U/L Alkaline Phosphatase 141 H 50-136 U/L Troponin I High Sensitivity 78 *H 4-75 ng/L B-Type Natriuretic Peptide 188 H 0-100 pg/mL Total Protein 8.7 H 6.0-8.3 g/dL Albumin 4.3 3.5-5.0 g/dL Influenza Type A Antigen Negative For Type A NEGATIVE Influenza Type B Antigen Negative For Type B NEGATIVE SARS-CoV-2, RNA, NAAT NEGATIVE SARS CoV-2 NEGATIVE Whole Blood Ketones Quantitative 6.7 H 0.0-0.6 mmol/L Uric Acid 9.7 H 2.6-7.2 mg/dL Phosphorus Level 4.3 2.5-4.9 mg/dL Magnesium Level 2.30 1.80-2.40 mg/dL Total Creatine Kinase 48 21-232 U/L Procalcitonin < 0.05 L 0.05-0.5 ng/mL Thyroid Stimulating Hormone (TSH) 0.92 0.36-3.74 uIU/mL Blood Gas Specimen Type Venous Arterial Blood Oxygen Saturation 91.8 L 94.0-98.0 % Venous Blood pH 7.318 L 7.320-7.430 Venous Blood pCO2 at Patient Temp 25 L 38-54 Venous Blood pO2 at Patient Temp 62.9 H 23.0-48.0 mmHg Venous Blood HCO3 12.6 L 22.0-29.0 Venous Blood Base Excess -10.9 L -2.0-3.0 Venous Blood Total Hemoglobin 20.4 *H 13.5-17.5 Sodium (Blood Gas) 140 136-145 MMOL/L Bedside Potassium (Blood Gas) 4.6 H 3.4-4.5 MMOL/L Bedside Chloride (Blood Gas) 102 98-107 MMOL/L Bedside Glucose (Blood Gas) 305 H 65-95 MG/DL Bedside Ionized Calcium (Blood Gas) 1.27 1.15-1.33 MMOL/L Bedside Lactic Acid (Blood Gas) 3.22 *H 0.36-0.75 MMOL/L Blood Gas Temperature 37.0 35.5-37.0 CELSIUS Blood Gas Vent Mode RA ROOM AIR FiO2 21.0 % Blood Gas Specimen Comment ELVATemoMALINDADAVID Test 08/05/24 14:14 08/05/24 15:01 08/05/24 16:02 08/05/24 16:21 Range/Units Urine Color LIGHT-YELLOW YELLOW Urine Appearance CLEAR CLEAR Urine pH 5.5 5.0-8.0 Urine Specific [place] 1.029 1.001-1.031 Urine Protein 50 H NEGATIVE mg/dL Urine Glucose (UA) >=1000 H NEGATIVE mg/dL Urine Ketones 100 H NEGATIVE mg/dL Urine Occult Blood NEGATIVE NEGATIVE Urine Nitrate NEGATIVE NEGATIVE Urine Bilirubin NEGATIVE NEGATIVE mg/dL Urine Urobilinogen 0.2 0.2-1.0 mg/dL Urine Leukocyte Esterase NEGATIVE NEGATIVE Long/uL Urine RBC 0-1 0-1 /HPF Urine WBC 0-1 0-1 /HPF Urine Bacteria None None Seen /HPF Urine Hyaline Casts 2-5 H 0-1 /LPF /LPF Whole Blood Glucose 249 H 238 H 70-110 MG/DL Sodium Level 143 136-145 mmol/L Potassium Level 4.0 3.5-5.1 mmol/L Chloride Level 105 101-111 mmol/L Carbon Dioxide Level 20 L 21-32 mmol/L Blood Urea Nitrogen 30 H 7-18 mg/dL Creatinine 1.3 0.5-1.3 mg/dL Glomerular Filtration Rate Calc 57 >90 mL/min Random Glucose 240 H 70-105 mg/dL Lactic Acid Level 2.2 0.8-2.5 mmol/L Total Calcium 7.9 L 8.5-10.1 mg/dL Test 08/05/24 17:03 Range/Units Whole Blood Glucose 241 H 70-110 MG/DL ECG 08/05/2024: Atrial fibrillation, with a heart rate of 135 beats per minute. Assessment: 1. Generalized weakness/fatigue 2. Viral gastroenteritis 3. DKA 4. Volume depletion/dehydration 5. Paroxysmal atrial fibrillation with RVR 6. CAD status post CABG 7. HTN 8. Acute kidney injury Plan: 1. Paroxysmal atrial fibrillation with RVR -substrate: Unknown, echocardiogram is pending -inciting factor: Multiple including volume depletion/dehydration, electrolyte derangement, and inability to tolerate p.o. intake -the patient presents with nausea and vomiting, of 10 days in duration. The symptoms began after the patient ate barbecue and over the ensuing 10 days his symptoms have remained constant. Associated symptoms include generalized weakness/fatigue, dizziness, decreased p.o. intake, and diarrhea. In the ED the patient was found to to be volume depleted/dehydrated, hemoconcentrated, with an acute kidney injury, and in paroxysmal atrial ablation with RVR. Surprisingly the patient denied any symptoms associated with the arrhythmia. -in order to address the above-mentioned arrhythmia we recommend starting the patient on metoprolol tartrate 5 mg IV q8hrs, in order to target a heart rate less than 100 beats per minute while at rest. The patient should continue on IV medications until he can tolerate p.o. medications. In addition we recommend administering IV fluids, initiating an electrolyte replacement protocol in order to keep potassium greater than 4.0 and magnesium greater than 2.0, and keeping the patient on telemetry monitoring. -CHADS 2 vas score: 5. We recommend starting the patient on full-dose anticoagulation, but either heparin IV drip or Lovenox 2. CAD s/p CABG -stable -the patient denies any chest pain, chest pressure, palpitations, or shortness of breath. -the above-mentioned findings indicate clinical stability, as a result we recommended that the patient continue on metoprolol tartrate 5 mg IV q8hrs, aspirin 81 mg daily and statin therapy. Thank you for this interesting consult and allowing us to participate in the care of your patient. Further recommendations to follow. JOHN HERNÁNDEZ MD Aug 05, 2024 18:25
[2024-08-05] MEDS ORDERED: metoPROLOL tartRATE 1 MG/ML 5ML VIAL IV PRN (18:30)
[2024-08-05] MEDS: HEParin 25,000 UNITS/250ML D5W 250 ML IV SCH (18:31)
--- NOTE | 2024-08-05 18:53 | CONS ---
[facility] CONSULTATION NOTE Date Patient Seen: Aug 05, 2024 Time of Visit: 18:38 Supervising Physician: Dr winston Diaz Reason for Consultation: DKA Management Consult Physician: Hospitalist group Outpatient Specialists: [ ] Inpatient Consults: [ ] PROBLEM LIST: Diabetic ketoacidosis, POA High anion gap metabolic acidosis, POA Intractable nausea and vomiting, POA NSTEMI, POA Leukocytosis, POA Severe dehydration, POA Electrolyte abnormality, POA Acute abdominal pain, POA Gallstone, POA DM type 2, with hyperglycemia, poorly controlled, current HGB A1c of 7.3 POA Hypertension, POA Hyperlipidemia, POA GERD, POA PLAN: Admit per primary ICU routine care NPO for now, may have ice chips Zofran 4 mg q.6 as needed for vomiting Hold antidiabetic for now Continue DKA protocol Give 1 L of LR bolus x1 now Increase early fluid to 250 cc an hour We will transition to home medication once anion gap is closed bicarb level is normal Strict I&O Continue CR monitoring Replete electrolytes per DKA protocol Endocrinology consult in a.m. CBC, CMP, magnesium level daily HPI: 74-year-old male with past medical history of DM type 2, hypertension, hyperlipidemia, GERD presented to ER via private vehicle with complaint of nausea and vomiting, intense thirst, and slight abdominal pain that has been ongoing for 10 days. Patient says that decided to bring him in due to unrelieved symptoms for further medical evaluation. Apparently patient is a winter [place] from [place]. Initial chemistry in ED showed anion gap of 18, bicarb level of 20, and serum glucose of 232. CBC showed leukocytosis, with hemoglobin of 20. 2, and hematocrit of 58. Chest x-ray did not reveal any acute infiltrates, CT of the abdomen showed multiple gallstone, and CT of the head showed no acute intracranial abnormality. In ED patient was initiated on DKA protocol, and was given 2 L of IV bolus. At present patient is currently hemodynamically stable, sinus tach on the monitor, with noticeable ketone breath, not in acute respiratory distress. Patient denies any headache, chest pain, shortness of breath, but complains of being nauseous, and generally weak. Patient denies any smoking, alcohol intake, illicit drug use. Patient vaccination schedule is up-to-date. PAST MEDICAL HX: see above PAST SURGICAL HX: noncontributory SOCIAL HISTORY: No tobacco, ETOH, or illicit drug use Coded Allergies: No Known Allergies (Unverified Allergy, Unknown, 08/05/24) REVIEW OF SYSTEMS: 12 point ROS reviewed with patient. Pertinent positives mentioned above. Otherwise negative. PHYSICAL EXAM: GENERAL: alert, weak, awake oriented x 3 HEENT: EOMI, Sclera non icteric, moist mucosa NECK: Supple, no JVD, trachea midline LUNGS: Clear breath sounds bilaterally. No wheezes HEART: Sinus tach on the monitor, Normal S1 and S2, without murmurs ABD: Abdomen soft, nontender. Bowel sounds present EXT: No clubbing cyanosis or edema NEURO: Alert and oriented to person, follows commands Vital Signs (last 8hr) Date Time Temp Pulse Resp B/P (MAP) Pulse Ox O2 Delivery O2 Flow Rate FiO2 08/05/24 17:30 113 14 137/73 96 08/05/24 17:00 120 23 151/85 98 Room Air 08/05/24 17:00 97 Room Air* 0 21 08/05/24 16:05 97.5 96 20 136/76 96 Room Air* 0 21 08/05/24 15:04 97.7 92 20 127/79 100 Room Air* 0 08/05/24 12:51 154 08/05/24 12:11 97.5 128 18 130/86 96 Room Air 0 LABS: Hematology Labs: Test 08/05/24 12:35 Range/Units White Blood Count 15.9 H 4.8-10.8 K/uL Red Blood Count 6.30 H 4.50-6.20 MIL/uL Hemoglobin 20.2 *H 14.0-18.0 g/dL Hematocrit 58.2 H 42-54 % Mean Corpuscular Volume 92.4 79-99 fL Mean Corpuscular Hemoglobin 32.1 27.0-33.0 pg Mean Corpuscular Hemoglobin Concent 34.7 32.0-36.0 g/dL Red Cell Distribution Width 13.0 11.0-15.5 % Platelet Count 273 130-400 K/uL Mean Platelet Volume 9.9 7.5-10.5 fL Immature Granulocyte % (Auto) 0.4 0-1 % Neutrophils (%) (Auto) 80.4 H 40.0-77.0 % Lymphocytes (%) (Auto) 12.6 L 21.0-51.0 % Monocytes (%) (Auto) 5.8 3.0-13.0 % Eosinophils (%) (Auto) 0.5 0.0-8.0 % Basophils (%) (Auto) 0.3 0.0-5.0 % Neutrophils # (Auto) 12.8 H 1.8-7.7 K/uL Lymphocytes # (Auto) 2.0 1.0-4.8 K/uL Monocytes # (Auto) 0.9 0.1-1.0 K/uL Eosinophils # (Auto) 0.08 0.00-0.70 K/uL Basophils # (Auto) 0.04 0.00-0.20 K/uL Absolute Immature Granulocyte (auto 0.06 0-1 K/uL Nucleated Red Blood Cells 0.0 0.0-0.19 % Erythrocyte Sedimentation Rate 3 0-20 MM/HR Chemistry Labs: Test 08/05/24 18:21 08/05/24 16:21 08/05/24 13:42 08/05/24 12:35 Range/Units Whole Blood Glucose 232 H 70-110 MG/DL Sodium Level 143 136-145 mmol/L Potassium Level 4.0 3.5-5.1 mmol/L Chloride Level 105 101-111 mmol/L Carbon Dioxide Level 20 L 21-32 mmol/L Blood Urea Nitrogen 30 H 7-18 mg/dL Creatinine 1.3 0.5-1.3 mg/dL Glomerular Filtration Rate Calc 57 >90 mL/min Random Glucose 240 H 70-105 mg/dL Lactic Acid Level 2.2 0.8-2.5 mmol/L Total Calcium 7.9 L 8.5-10.1 mg/dL Whole Blood Ketones Quantitative 6.7 H 0.0-0.6 mmol/L Uric Acid 9.7 H 2.6-7.2 mg/dL Phosphorus Level 4.3 2.5-4.9 mg/dL Magnesium Level 2.30 1.80-2.40 mg/dL Total Creatine Kinase 48 21-232 U/L Procalcitonin < 0.05 L 0.05-0.5 ng/mL Thyroid Stimulating Hormone (TSH) 0.92 0.36-3.74 uIU/mL Hemoglobin A1c 7.3 H 4.0-6.0 % Estimated Average Glucose (eAG) 163 H 70-126 mg/dL Total Bilirubin 2.2 H 0.2-1.0 mg/dL Aspartate Amino Transf (AST/SGOT) 53 H 10-37 U/L Alanine Aminotransferase (ALT/SGPT) 92 H 12-78 U/L Alkaline Phosphatase 141 H 50-136 U/L Troponin I High Sensitivity 78 *H 4-75 ng/L B-Type Natriuretic Peptide 188 H 0-100 pg/mL Total Protein 8.7 H 6.0-8.3 g/dL Albumin 4.3 3.5-5.0 g/dL Coagulation Labs: Test 08/05/24 18:04 08/05/24 12:35 Range/Units Activated Partial Thromboplast Time 35.0 26.3-35.5 SEC Prothrombin Time 12.2 H 9.6-11.6 SEC Prothromb Time International Ratio 1.10 0.85-1.15 DIAGNOSTICS / RADIOLOGY RESULTS: CHEST 1VW REASON: assess for any signficant infiltrates COMPARISON: None. FINDINGS: Lungs are free of mass or infiltrate. There is a bleb or bulla present in the right midlung. There are mildly increased interstitial markings. Heart size is normal. There is no vascular congestion or pleural effusion. There is been a previous median sternotomy. IMPRESSION: 1. Probable bleb or bulla in the right midlung. 2. No acute finding seen in the chest. Exam: NONCONTRAST CT BRAIN REASON: intractable nausea and vomiting x 1 week. COMPARISON: None. TECHNIQUE: Images are obtained from vertex to the skull base. The exam was performed without IV contrast. FINDINGS: There is normal appearing brain parenchyma. There are no focal mass lesions. There is is no evidence of intracranial hemorrhage or acute stroke. Ventricles and sulci appear normal. Posterior fossa and brainstem structures are unremarkable. Paranasal sinuses and remaining extracranial soft tissues appear normal as well. IMPRESSION: 1. Normal noncontrast CT brain. CT was performed with one or more following dose reduction techniques: automated exposure control, adjustment of the mA and kv according to patient's size, or use of a iterative reconstruction technique. CT ABDOMEN/PELVIS W/O CONTRAST REASON: intractable nausea and vomiting x 1 week COMPARISON: Grossly FINDINGS: Lung bases are clear. There are no focal liver lesions. There are normal-appearing kidneys.. Spleen and pancreas appear unremarkable. There are multiple very small stones present within the gallbladder, there is no wall thickening or edema. Intrahepatic biliary tree does not appear distended. Bowel loops appear unremarkable. There is no CT evidence of acute appendicitis. There is no evidence of free fluid or intraperitoneal air. There are no focal fluid collections. Aorta and retroperitoneum appear normal as do pelvic soft tissue structures. The anterior abdominal wall is intact. Osseous structures appear unremarkable. IMPRESSION: 1. Multiple small stones present within an otherwise normal-appearing gallbladder. 2. Otherwise unremarkable CT abdomen and pelvis. CT was performed with one or more following dose reduction techniques: automated exposure control, adjustment of the mA and kv according to patient's size, or use of a iterative reconstruction technique. PLAN NEURO: Minimize central acting medications as possible. Fall Precautions. Well lighted room through the day and minimize interruptions through the night to prevent acute delirium. PULMONARY: Supplemental 02 as needed Titrate Fio2 to keep Spo2 > or = 90% DuoNebs and CPT as needed IS hourly while awake for pulmonary hygiene Out of bed to chair as tolerated CARDIOVASCULAR: Follow hemodynamics. Titrate vasopressor to keep MAP >65 or systolic blood pressure >95mmHg DIPS: Insulin LINES: PIV GI & NUTRITION: NPO Aspirations precautions Prokinetic agents and laxatives as needed KIDNEYS & ELECTROLYTES: Strict monitoring of intake and output Daily weights Avoid nephrotoxic agents Monitor electrolytes and replace as needed Goal urine output of 30mL/hr or 0.5mL/kg/hr ENDOCRINE: Maintain blood glucose between 100-180 at all times. Insulin sliding scale for blood glucose management INFECTIOUS DISEASE: Trend temperature. Montelongo-culture if febrile. Micro: [ ] Antibiotics: None HEMATOLOGY & COAGULATION: Monitor H&H. Keep Hgb > 7 Transfuse 1 unit of PRBC for Hgb < 7 Transfuse 1 pack of platelets of platelets < 20, 000 Watch for any signs and symptoms of bleeding SKIN: Pressure ulcer prevention per facility protocol Rehab: PT/OT Prophylaxis: GI: PPI DVT: Code Status: Full Resuscitation Disposition: ICU Other: Total patient care time exceeds 35 minutes excluding all procedures. Supervising physician: GIOVANY Martini SYSTEMS SUPPORT ENGINEER Aug 05, 2024 18:53
[2024-08-05] MEDS: LACTATED RINGERS 1000ML IV SCH (19:02)
[2024-08-05] MEDS: HEParin 5,000 UNIT VIAL IV SCH (19:45)
[2024-08-05] MEDS: INSULIN GLARgine 100 UNITS/ML 10 ML VIAL SQ SCH (20:20)
[2024-08-05 20:37] LABS: CREATININE 1.2 mg/dL (0.5-1.3); POTASSIUM 4.4 mmol/L (3.5-5.1)
[2024-08-05] MEDS: ZOSYN 3.375GM +NS 50ML IVPB SCH (21:06)
[2024-08-05] MEDS: 0.9%NACL 50ML IV SCH (21:07)
--- NOTE | 2024-08-05 22:34 | HMCIMG ---
US ABDOMINAL RUQ\E\LTD HISTORY: No additional history given. COMPARISON: None TECHNIQUE: Right upper quadrant abdominal ultrasound study was performed. FINDINGS: Pancreas poorly seen limiting evaluation. Liver measures 14.6 cm. Liver is echogenic consistent with liver parenchymal disease. Gallbladder is not well seen. Common duct is not visualized. The study is limited due to overlying bowel gas. Right kidney measures 10.9 x 5.9 x 4.6 cm. No hydronephrosis is seen of the right kidney. IMPRESSION: 1. Limited study due to over bowel gas. Gallbladder, common duct and pancreas are not well seen. 2. No hydronephrosis is seen.
[2024-08-06] VITALS (23 sets, daily range): BP systolic 94–136; BP diastolic 55–79; PULSE 83–97; RESP 14–23; TEMP 97.8–98.9; O2SAT 97–98
[2024-08-06 00:46] LABS: CREATININE 1.2 mg/dL (0.5-1.3); POTASSIUM 4.1 mmol/L (3.5-5.1)
[2024-08-06 05:38] LABS: BASOPHILS # (AUTO) 0.03 K/uL (0.00-0.20); BASOPHILS % (AUTO) 0.3 % (0.0-5.0); EOSINOPHILS # (AUTO) 0.05 K/uL (0.00-0.70); EOSINOPHILS % (AUTO) 0.5 % (0.0-8.0); HEMATOCRIT 42.2 % (42-54); IMMATURE GRANULOCYTE ABSOLUTE 0.03 K/uL (0-1); LYMPHOCYTES # (AUTO) 2.5 K/uL (1.0-4.8); LYMPHOCYTES % (AUTO) 23.1 % (21.0-51.0); MEAN CORPUSCULAR HEMOGLOBIN 31.7 pg (27.0-33.0); MEAN CORPUSCULAR HGB CONC 34.4 g/dL (32.0-36.0); MEAN CORPUSCULAR VOLUME 92.3 fL (79-99); MONOCYTES # (AUTO) 1.1 K/uL (0.1-1.0); MONOCYTES % (AUTO) 9.8 % (3.0-13.0); NEUTROPHILS # (AUTO) 7.3 K/uL (1.8-7.7); PLATELET COUNT (AUTO) 121 K/uL (130-400); RED BLOOD CELL COUNT(AUTO) 4.57 MIL/uL (4.50-6.20); RED CELL DISTRIBUTION WIDTH 13.1 % (11.0-15.5)
[2024-08-06 08:10] LABS: POTASSIUM 3.6 mmol/L (3.5-5.1)
[2024-08-06] MEDS: ASPIRIN 81 MG EC TAB PO SCH (10:12)
[2024-08-06] MEDS ORDERED: ROSU40TA88 PO (10:22)
[2024-08-06] MEDS ORDERED: NITR0.3T11 SL (10:22)
[2024-08-06] MEDS ORDERED: METO50TA18 PO (10:22)
[2024-08-06] MEDS ORDERED: FAMO20TA8 PO (10:22)
[2024-08-06] MEDS ORDERED: MULT-1258 PO (10:22)
[2024-08-06] MEDS ORDERED: AEC81 PO (10:22)
[2024-08-06] MEDS ORDERED: LOSA25TA41 PO (10:22)
[2024-08-06] MEDS ORDERED: GLIP5TAB15 PO (10:22)
--- NOTE | 2024-08-06 11:20 | PN ---
This is a 74-year-old male with a history of coronary artery disease status post CABG in 2011, postop atrial fibrillation, type 2 diabetes mellitus and hyperlipidemia. He was admitted 08/05/2024 secondary to DKA and INDU in the setting of intractable nausea and vomiting and was found to be in AF/AFL with rapid ventricular response. His EKG on admission shows coarse atrial fibrillation versus atrial flutter with a ventricular rate of 180 beats per minute. He was started on IV Lopressor for rate control, as well as IV heparin. He underwent CT scan of the abdomen and pelvis 08/05/2024 which showed multiple small stones present in the gallbladder, otherwise unremarkable. White blood count 11.0 down from 15.9, hemoglobin 14.5, hematocrit 42.2, platelets 121, creatinine 1.0, BUN 78, potassium 3.6, troponin initially 78 > 62.5, BNP 188. He is currently in atrial flutter with ventricular rates in the 90s. He offers no new cardiac complaints this morning. He states that he began having nausea and vomiting, as well as fatigue, decreased appetite and exertional shortness of breath 10 days ago. He denies palpitations. He reported a 19 lb weight loss over nine days. He states that he had postop atrial fibrillation after undergoing bypass surgery in 2011 but had not been aware of any additional episodes until now. On exam, he is in no acute distress, regular rhythm, mildly tachycardic, lungs are clear to auscultation bilaterally, no lower extremity edema is noted. Assessment: 1. Atrial fibrillation/atrial flutter in the setting of DKA. 2. DKA and INDU in the setting of intractable nausea and vomiting. 3. Coronary artery disease status post CABG in 2011. 4. History of postop atrial fibrillation. 5. Type 2 diabetes mellitus. 6. Hyperlipidemia. Plan: 1. He presented with atrial fibrillation/atrial flutter in the setting of DKA. He became symptomatic 10 days ago with symptoms including intractable nausea and vomiting, decreased appetite, exertional shortness of breath and fatigue. It is possible that the arrhythmia has been persistent since that time. 2. We will focus on a rate control strategy and resume his home metoprolol tartrate. He was taking metoprolol tartrate 50 mg twice daily at home, however we will initiate a reduced dose of 25 mg twice daily due to his marginally low blood pressures. 3. We will discontinue heparin and transition to oral anticoagulation with Eliquis 5 mg twice daily. 4. After he has been anticoagulated at least 3-4 weeks, recommend adventism of sinus rhythm, i.e. cardioversion versus catheter ablation. 5. We will order an echocardiogram to assess his LV function on this admission. Vitals/Labs Vital Signs Date Time Temp Pulse Resp B/P (MAP) Pulse Ox O2 Delivery O2 Flow Rate FiO2 08/06/24 08:00 97 Room Air* 0 21 08/06/24 08:00 98.1 86 19 122/67 Laboratory Tests 08/05/24 12:35 08/05/24 16:21 08/05/24 20:13 08/06/24 00:22 08/06/24 05:11 08/06/24 06:37 PAVAN EVANS Aug 06, 2024 11:20
[2024-08-06] MEDS: metoPROLOL tartRATE 25 MG TAB PO SCH (11:52)
--- NOTE | 2024-08-06 13:23 | PN ---
[facility] PROGRESS NOTE Date of Service: Aug 06, 2024 Time of Service: 13:19 SUBJECTIVE: Patient has been transitioned off of insulin. REVIEW OF SYSTEMS CONSTITUTIONAL: Asthenia, malaise, weight loss NEUROLOGICAL: Denies headache, amaurosis fugax, motor weakness, sensory deficit, vertigo/spinning sensation, gait abnormalities, or tremors. ENT: No hearing loss, otalgia, otorrhea, rhinitis, rhinorrhea, hoarseness, or sore throat. CARDIOVASCULAR: Denies any exertional angina, dyspnea on exertion, orthopnea, paroxysmal nocturnal dyspnea, palpitations, life-threatening arrhythmias, claudication. PULMONARY: Denies any shortness of breath, cough, phlegm/sputum, hemoptysis, pleuritic chest pain. SLEEP: Denies morning headaches, daytime somnolence or napping. Denies difficulty falling asleep, staying asleep, waking from sleep. Denies knowledge of snoring. GASTROINTESTINAL: Nausea and vomiting for more than a week, unable to tolerate any oral intake GENITOURINARY: Denies frequency, urgency, nocturia, hematuria or incontinence (Storage/Irritative symptoms.) Low urinary stream, straining to void, urinary intermittency or hesitancy, splitting of the voiding stream, terminal dribbling. ENDOCRINOLOGIC: Denies polyuria, polydipsia, polyphagia or heat/cold intolerances. HEMATOLOGIC: Denies thrombophilia/previous clots, or coagulopathy/bleeding disorders. ONCOLOGIC: Denies personal history of malignancy. DERMATOLOGIC: Denies rashes or pruritus. PSYCHIATRIC: Denies any suicidal or homicidal ideation. Denies hallucinations. PHYSICAL EXAM GENERAL APPEARANCE: Patient is awake and alert, appears very frail NEUROLOGICAL: Cranial nerves II-XII grossly intact. Motor is 5/5 in bilateral upper and lower extremities proximal to distal. No sensory deficits. HEENT: Oral mucosa is very dry NECK: Supple. No JVD. No thyromegaly. No submental, submandibular, pre-/po stauricular, occipital or supraclavicular lymphadenopathy. CHEST: Normal chest expansion. No Telemetry. LUNGS: Absence of any rales, rhonchi or any wheezing. CARDIOVASCULAR: Regular. S1 and S2 normal. No appreciable rubs, murmurs or gallops. ABDOMEN: Soft, nontender, and nondistended. No significant tenderness noted : Deferred. No Wheeler. EXTREMITIES: Non-edematous and not cyanotic. No clubbing. Good capillary refill. SKIN: No skin breakdown. Vital Signs (last 8hr) Date Time Temp Pulse Resp B/P (MAP) Pulse Ox O2 Delivery O2 Flow Rate FiO2 08/06/24 12:00 98.2 87 20 118/75 98 08/06/24 11:00 87 14 123/75 98 08/06/24 10:00 92 16 105/68 97 08/06/24 09:00 89 18 100/55 98 08/06/24 08:00 97 Room Air* 0 21 08/06/24 08:00 98.1 86 19 122/67 97 Room Air 08/06/24 07:00 86 18 118/69 98 Room Air 08/06/24 06:00 88 19 126/77 97 Room Air LABS: Laboratory: Test 08/06/24 12:05 08/06/24 06:37 08/06/24 05:11 08/05/24 16:21 Range/Units Whole Blood Glucose 184 H 70-110 MG/DL Activated Partial Thromboplast Time > 139.0 *H 26.3-35.5 SEC Sodium Level 138 136-145 mmol/L Potassium Level 3.6 3.5-5.1 mmol/L Chloride Level 106 101-111 mmol/L Carbon Dioxide Level 23 21-32 mmol/L Blood Urea Nitrogen 19 H 7-18 mg/dL Creatinine 1.0 0.5-1.3 mg/dL Glomerular Filtration Rate Calc 78 >90 mL/min Random Glucose 173 H 70-105 mg/dL Total Calcium 8.3 L 8.5-10.1 mg/dL Total Creatine Kinase 63 # 21-232 U/L Troponin I High Sensitivity 62.5 4-75 ng/L White Blood Count 11.0 #H 4.8-10.8 K/uL Red Blood Count 4.57 # 4.50-6.20 MIL/uL Hemoglobin 14.5 # 14.0-18.0 g/dL Hematocrit 42.2 # 42-54 % Mean Corpuscular Volume 92.3 79-99 fL Mean Corpuscular Hemoglobin 31.7 27.0-33.0 pg Mean Corpuscular Hemoglobin Concent 34.4 32.0-36.0 g/dL Red Cell Distribution Width 13.1 11.0-15.5 % Platelet Count 121 #L 130-400 K/uL Mean Platelet Volume 10.7 H 7.5-10.5 fL Immature Granulocyte % (Auto) 0.3 0-1 % Neutrophils (%) (Auto) 66.0 40.0-77.0 % Lymphocytes (%) (Auto) 23.1 21.0-51.0 % Monocytes (%) (Auto) 9.8 3.0-13.0 % Eosinophils (%) (Auto) 0.5 0.0-8.0 % Basophils (%) (Auto) 0.3 0.0-5.0 % Neutrophils # (Auto) 7.3 1.8-7.7 K/uL Lymphocytes # (Auto) 2.5 1.0-4.8 K/uL Monocytes # (Auto) 1.1 H 0.1-1.0 K/uL Eosinophils # (Auto) 0.05 0.00-0.70 K/uL Basophils # (Auto) 0.03 0.00-0.20 K/uL Absolute Immature Granulocyte (auto 0.03 0-1 K/uL Nucleated Red Blood Cells 0.0 0.0-0.19 % Lactic Acid Level 2.2 0.8-2.5 mmol/L Test 08/05/24 14:14 08/05/24 13:44 08/05/24 13:42 08/05/24 12:45 Range/Units Urine Color LIGHT-YELLOW YELLOW Urine Appearance CLEAR CLEAR Urine pH 5.5 5.0-8.0 Urine Specific [place] 1.029 1.001-1.031 Urine Protein 50 H NEGATIVE mg/dL Urine Glucose (UA) >=1000 H NEGATIVE mg/dL Urine Ketones 100 H NEGATIVE mg/dL Urine Occult Blood NEGATIVE NEGATIVE Urine Nitrate NEGATIVE NEGATIVE Urine Bilirubin NEGATIVE NEGATIVE mg/dL Urine Urobilinogen 0.2 0.2-1.0 mg/dL Urine Leukocyte Esterase NEGATIVE NEGATIVE Long/uL Urine RBC 0-1 0-1 /HPF Urine WBC 0-1 0-1 /HPF Urine Bacteria None None Seen /HPF Urine Hyaline Casts 2-5 H 0-1 /LPF /LPF Blood Gas Specimen Type Venous Arterial Blood Oxygen Saturation 91.8 L 94.0-98.0 % Venous Blood pH 7.318 L 7.320-7.430 Venous Blood pCO2 at Patient Temp 25 L 38-54 Venous Blood pO2 at Patient Temp 62.9 H 23.0-48.0 mmHg Venous Blood HCO3 12.6 L 22.0-29.0 Venous Blood Base Excess -10.9 L -2.0-3.0 Venous Blood Total Hemoglobin 20.4 *H 13.5-17.5 Sodium (Blood Gas) 140 136-145 MMOL/L Bedside Potassium (Blood Gas) 4.6 H 3.4-4.5 MMOL/L Bedside Chloride (Blood Gas) 102 98-107 MMOL/L Bedside Glucose (Blood Gas) 305 H 65-95 MG/DL Bedside Ionized Calcium (Blood Gas) 1.27 1.15-1.33 MMOL/L Bedside Lactic Acid (Blood Gas) 3.22 *H 0.36-0.75 MMOL/L Blood Gas Temperature 37.0 35.5-37.0 CELSIUS Blood Gas Vent Mode RA ROOM AIR FiO2 21.0 % Blood Gas Specimen Comment [facility] Whole Blood Ketones Quantitative 6.7 H 0.0-0.6 mmol/L Uric Acid 9.7 H 2.6-7.2 mg/dL Phosphorus Level 4.3 2.5-4.9 mg/dL Magnesium Level 2.30 1.80-2.40 mg/dL Procalcitonin < 0.05 L 0.05-0.5 ng/mL Thyroid Stimulating Hormone (TSH) 0.92 0.36-3.74 uIU/mL Influenza Type A Antigen Negative For Type A NEGATIVE Influenza Type B Antigen Negative For Type B NEGATIVE SARS-CoV-2, RNA, NAAT NEGATIVE SARS CoV-2 NEGATIVE Test 08/05/24 12:35 Range/Units Erythrocyte Sedimentation Rate 3 0-20 MM/HR Prothrombin Time 12.2 H 9.6-11.6 SEC Prothromb Time International Ratio 1.10 0.85-1.15 Hemoglobin A1c 7.3 H 4.0-6.0 % Estimated Average Glucose (eAG) 163 H 70-126 mg/dL Total Bilirubin 2.2 H 0.2-1.0 mg/dL Aspartate Amino Transf (AST/SGOT) 53 H 10-37 U/L Alanine Aminotransferase (ALT/SGPT) 92 H 12-78 U/L Alkaline Phosphatase 141 H 50-136 U/L B-Type Natriuretic Peptide 188 H 0-100 pg/mL Total Protein 8.7 H 6.0-8.3 g/dL Albumin 4.3 3.5-5.0 g/dL Current Medications Medications (Trade) Dose Ordered Sig/Maegan Route PRN Reason Start Time Stop Time Status Last Admin Dose Admin Acetaminophen (TYLenol 325MG TAB) 650 mg Q6H PRN PO MILD PAIN (1-3) 08/05/24 13:30 09/04/24 13:29 Apixaban (EliquIS) 5 mg BID PO 08/06/24 21:00 09/05/24 20:59 Aspirin (Aspirin 81mg Ec Tab) 81 mg DAILY PO 08/06/24 09:00 09/05/24 08:59 08/06/24 10:12 81 MG Atorvastatin Calcium (LIPItor 20MG) 20 mg HS PO 08/06/24 21:00 09/05/24 20:59 Dextrose/Sodium Chloride 1,000 ml @ 0 mls/hr AD IV 08/05/24 14:30 09/04/24 14:29 Heparin Sodium (Porcine) (HEParin 5,000 UNIT VIAL) 5,000 unit ONCE IV 08/05/24 19:00 08/05/24 21:00 DC 08/05/24 19:45 5,000 UNIT Heparin Sodium/ Dextrose 250 ml @ 0 mls/hr Q6H IV 08/05/24 17:00 08/06/24 11:26 DC 08/05/24 18:31 10.79 MLS/HR Insulin Glargine (LANtus 100 UNITS/ML 10 ML VIAL) 10 units BID@0730,2100 SQ 08/05/24 21:00 09/04/24 20:59 Insulin Human Regular 100 unit/ Sodium Chloride 101 ml @ 0 mls/hr PROTOCOL IV 08/05/24 14:30 09/04/24 14:29 08/05/24 17:10 6.35 MLS/HR Lactated Ringer's (Lactated Ringers 1000ml) 1,000 ml ONCE IV 08/05/24 19:00 08/06/24 11:26 DC 08/05/24 19:02 1,000 ML Magnesium Sulfate 50 ml @ 0 mls/hr PROTOCOL IV 08/05/24 14:30 09/04/24 14:29 Metoprolol Tartrate (loprESSOR) 5 mg Q8H PRN IV INCREASED HEART RATE 2/21/25 18:30 09/04/24 18:29 Metoprolol Tartrate (loprESSOR) 12.5 mg BID PO 08/06/24 11:30 09/05/24 11:29 08/06/24 11:52 12.5 MG Multivitamins/ Minerals 10 ml/ Folic Acid 1 mg/ Thiamine HCl 100 mg/Sodium Chloride 1,010 ml @ 100 mls/hr DAILY IV 08/05/24 14:00 08/05/24 14:30 DC Ondansetron HCl (zoFRAN 4MG INJ) 4 mg Q6H PRN IVP NAUSEA/VOMITING 08/05/24 13:30 09/04/24 13:29 08/05/24 17:10 4 MG Pantoprazole Sodium (PROTonix 40MG INJ) 40 mg Q24H IVP 08/05/24 13:30 09/04/24 13:29 08/06/24 11:53 40 MG Piperacillin Sod/ Tazobactam Sod (Zosyn 3.375gm+NS 50ml) 3.375 gm ONCE IVPB 08/05/24 15:00 08/05/24 15:22 DC Piperacillin Sod/ Tazobactam Sod (Zosyn 3.375gm+NS 50ml) 3.375 gm ZOSY8 IVPB 08/05/24 21:00 08/15/24 20:59 08/06/24 11:53 3.375 GM Potassium Chloride 20 meq/ Sodium Chloride 1,010 ml @ 0 mls/hr PROTOCOL IV 08/05/24 14:30 09/04/24 14:29 Potassium Chloride/Dextrose/ Sod Cl 1,000 ml @ 0 mls/hr AD IV 08/05/24 14:30 09/04/24 14:29 08/06/24 08:04 150 MLS/HR Potassium Chloride 100 ml @ 0 mls/hr PROTOCOL PRN IV DKA POTASSIUM REPLACEMENT 08/05/24 14:30 09/04/24 14:29 Sodium Chloride 1,000 ml @ 200 mls/hr PROTOCOL IV 08/05/24 14:30 09/04/24 14:29 Sodium Chloride (NS 50ml) 50 ml AD IV 08/05/24 15:02 08/06/24 07:28 DC 08/06/24 06:09 50 ML Thiamine HCl (Vitamin B-1) 200 mg Q24H IVP 08/05/24 13:30 09/04/24 13:29 08/06/24 11:53 200 MG DIAGNOSTICS / RADIOLOGY: [ ] ASSESSMENT: Acute diabetic ketoacidosis, POA Severe dehydration with hemoconcentration, POA Atrial fibrillation with RVR, POA Acute kidney injury, POA Severe protein calorie malnutrition, POA History of SGLT2 inhibitor use as outpatient (Jardiance), POA History of Ozempic use as outpatient, POA Demand ischemia, POA Mild hepatitis, POA Leukocytosis, POA Debility/frailty, POA Intractable nausea and vomiting times nine days, POA Hypertension, POA Hyperlipidemia, POA PLAN: Neurological: Daily neurochecks Cardiovascular: MAP goal greater than 65 mmHg Monitor for arrhythmias and blood pressure Follow up Cardiology Respiratory: Keep O2 sats greater than 92% Follow-up with pulm crit Gastrointestinal: GI prophylaxis with famotidine Clear liquid diet Renal: Replete electrolytes as per protocol Trend a.m. BMP Hemo/Onc: Daily CBC DVT prophylaxis with SCDs Lovenox Endocrine: Trend glucose levels with a.m. BMP Hypoglycemia protocol I agree with transitioning to subcutaneous insulin ID: Continue Zosyn Trend WBCs Follow up blood and sputum cultures CODE STATUS: Full code Discussion: No family at the bedside today Case was discussed with bedside nurse and case management Critical care Attention time: greater than 30 minutes TAWNY VALLES IV, MD Aug 06, 2024 13:23
[2024-08-06] MEDS ORDERED: EMPA25TA PO (14:17)
--- NOTE | 2024-08-06 14:26 | PN ---
[facility] PROGRESS NOTE Date Patient Seen: Aug 06, 2024 Time of Visit: 14:25 Supervising Physician: Dr. Diaz Consult Physician: Hospitalist group Outpatient Specialists: [ ] Inpatient Consults: [ ] PROBLEM LIST: Diabetic ketoacidosis, POA resolved High anion gap metabolic acidosis, POA Intractable nausea and vomiting, POA NSTEMI, POA Leukocytosis, POA Severe dehydration, POA Electrolyte abnormality, POA Acute abdominal pain, POA Gallstone, POA DM type 2, with hyperglycemia, poorly controlled, current HGB A1c of 7.3 POA Hypertension, POA Hyperlipidemia, POA GERD, POA INTERVAL HISTORY: 08/06/2024: At the time of my evaluation, the patient is lying in bed. He is awake alert and verbally interactive with the appropriate responses. The patient is on room air and with optimal oxygen saturation. On the monitor, he is hemodynamically stable. He remains on heparin drip due to AFib/flutter. On chemistry, the patient has a sodium of 138, potassium of 3.6, chloride of 106, CO2 of 23, BUN 19, creatinine 1.0 and a blood glucose of 173 cumulative balance was + 2531.1. The patient with a gap of nine and remains on a insulin drip. No other complaint. REVIEW OF SYSTEMS: 12 point ROS reviewed with patient. Pertinent positives mentioned above. Otherwise negative. PHYSICAL EXAM: GENERAL: alert, weak, awake oriented x 3 HEENT: EOMI, Sclera non icteric, moist mucosa NECK: Supple, no JVD, trachea midline LUNGS: Clear breath sounds bilaterally. No wheezes HEART: Sinus tach on the monitor, Normal S1 and S2, without murmurs ABD: Abdomen soft, nontender. Bowel sounds present EXT: No clubbing cyanosis or edema NEURO: Alert and oriented to person, follows commands Vital Signs (last 8hr) Date Time Temp Pulse Resp B/P (MAP) Pulse Ox O2 Delivery O2 Flow Rate FiO2 08/06/24 12:00 98.2 87 20 118/75 98 08/06/24 11:00 87 14 123/75 98 08/06/24 10:00 92 16 105/68 97 08/06/24 09:00 89 18 100/55 98 08/06/24 08:00 97 Room Air* 0 21 08/06/24 08:00 98.1 86 19 122/67 97 Room Air 08/06/24 07:00 86 18 118/69 98 Room Air LABS: Hematology Labs: Test 08/06/24 05:11 08/05/24 12:35 Range/Units White Blood Count 11.0 #H 4.8-10.8 K/uL Red Blood Count 4.57 # 4.50-6.20 MIL/uL Hemoglobin 14.5 # 14.0-18.0 g/dL Hematocrit 42.2 # 42-54 % Mean Corpuscular Volume 92.3 79-99 fL Mean Corpuscular Hemoglobin 31.7 27.0-33.0 pg Mean Corpuscular Hemoglobin Concent 34.4 32.0-36.0 g/dL Red Cell Distribution Width 13.1 11.0-15.5 % Platelet Count 121 #L 130-400 K/uL Mean Platelet Volume 10.7 H 7.5-10.5 fL Immature Granulocyte % (Auto) 0.3 0-1 % Neutrophils (%) (Auto) 66.0 40.0-77.0 % Lymphocytes (%) (Auto) 23.1 21.0-51.0 % Monocytes (%) (Auto) 9.8 3.0-13.0 % Eosinophils (%) (Auto) 0.5 0.0-8.0 % Basophils (%) (Auto) 0.3 0.0-5.0 % Neutrophils # (Auto) 7.3 1.8-7.7 K/uL Lymphocytes # (Auto) 2.5 1.0-4.8 K/uL Monocytes # (Auto) 1.1 H 0.1-1.0 K/uL Eosinophils # (Auto) 0.05 0.00-0.70 K/uL Basophils # (Auto) 0.03 0.00-0.20 K/uL Absolute Immature Granulocyte (auto 0.03 0-1 K/uL Nucleated Red Blood Cells 0.0 0.0-0.19 % Erythrocyte Sedimentation Rate 3 0-20 MM/HR Chemistry Labs: Test 08/06/24 13:46 08/06/24 06:37 08/05/24 16:21 08/05/24 13:42 Range/Units Whole Blood Glucose 190 H 70-110 MG/DL Sodium Level 138 136-145 mmol/L Potassium Level 3.6 3.5-5.1 mmol/L Chloride Level 106 101-111 mmol/L Carbon Dioxide Level 23 21-32 mmol/L Blood Urea Nitrogen 19 H 7-18 mg/dL Creatinine 1.0 0.5-1.3 mg/dL Glomerular Filtration Rate Calc 78 >90 mL/min Random Glucose 173 H 70-105 mg/dL Total Calcium 8.3 L 8.5-10.1 mg/dL Total Creatine Kinase 63 # 21-232 U/L Troponin I High Sensitivity 62.5 4-75 ng/L Lactic Acid Level 2.2 0.8-2.5 mmol/L Whole Blood Ketones Quantitative 6.7 H 0.0-0.6 mmol/L Uric Acid 9.7 H 2.6-7.2 mg/dL Phosphorus Level 4.3 2.5-4.9 mg/dL Magnesium Level 2.30 1.80-2.40 mg/dL Procalcitonin < 0.05 L 0.05-0.5 ng/mL Thyroid Stimulating Hormone (TSH) 0.92 0.36-3.74 uIU/mL Test 08/05/24 12:35 Range/Units Hemoglobin A1c 7.3 H 4.0-6.0 % Estimated Average Glucose (eAG) 163 H 70-126 mg/dL Total Bilirubin 2.2 H 0.2-1.0 mg/dL Aspartate Amino Transf (AST/SGOT) 53 H 10-37 U/L Alanine Aminotransferase (ALT/SGPT) 92 H 12-78 U/L Alkaline Phosphatase 141 H 50-136 U/L B-Type Natriuretic Peptide 188 H 0-100 pg/mL Total Protein 8.7 H 6.0-8.3 g/dL Albumin 4.3 3.5-5.0 g/dL Coagulation Labs: Test 08/06/24 06:37 08/05/24 12:35 Range/Units Activated Partial Thromboplast Time > 139.0 *H 26.3-35.5 SEC Prothrombin Time 12.2 H 9.6-11.6 SEC Prothromb Time International Ratio 1.10 0.85-1.15 DIAGNOSTICS / RADIOLOGY RESULTS: [ ] PLAN 08/06/2024: For now, going to continue current management for the patient. We will monitor his vitals and treat accordingly. The patient will remain on heparin drip which we will discontinue upon resuming his Eliquis tonight. I am going to discontinue the insulin drip, the patient will continue on Lantus subQ and insulin sliding scale because the gap of closed and the patient has no further need for ICU care I am going to transfer the patient out of the ICU. Considering his history of AFib, the patient will be in PCCU/medical with telemetry. We will continue to monitor the patient's condition, we will continue to provide general supportive care, GI and DVT prophylaxis. Further orders per attending MD and hospital course. NEURO: Minimize central acting medications as possible. Fall Precautions. Well lighted room through the day and minimize interruptions through the night to prevent acute delirium. PULMONARY: Supplemental 02 as needed Titrate Fio2 to keep Spo2 > or = 90% DuoNebs and CPT as needed IS hourly while awake for pulmonary hygiene Out of bed to chair as tolerated CARDIOVASCULAR: Follow hemodynamics. Titrate vasopressor to keep MAP >65 or systolic blood pressure >95mmHg DIPS: Insulin LINES: PIV GI & NUTRITION: NPO Aspirations precautions Prokinetic agents and laxatives as needed KIDNEYS & ELECTROLYTES: Strict monitoring of intake and output Daily weights Avoid nephrotoxic agents Monitor electrolytes and replace as needed Goal urine output of 30mL/hr or 0.5mL/kg/hr ENDOCRINE: Maintain blood glucose between 100-180 at all times. Insulin sliding scale for blood glucose management INFECTIOUS DISEASE: Trend temperature. Montelongo-culture if febrile. Micro: [ ] Antibiotics: None HEMATOLOGY & COAGULATION: Monitor H&H. Keep Hgb > 7 Transfuse 1 unit of PRBC for Hgb < 7 Transfuse 1 pack of platelets of platelets < 20, 000 Watch for any signs and symptoms of bleeding SKIN: Pressure ulcer prevention per facility protocol Rehab: PT/OT Prophylaxis: GI: PPI DVT: Code Status: Full Resuscitation Disposition: PCCU Other: Total patient care time exceeds 35 minutes excluding all procedures. PHUONG MORALES NP Aug 06, 2024 14:26
[2024-08-06] MEDS: INSULIN humuLIN R 100 UNIT/ML 3ML SQ SCH (16:46)
[2024-08-06] MEDS: APIXaban 5 MG TABLET PO SCH (20:37)
[2024-08-06] MEDS: atorVAStatin 20 MG TABLET PO SCH (20:37)
[2024-08-07] VITALS (15 sets, daily range): BP systolic 107–135; BP diastolic 53–81; PULSE 65–87; RESP 7–19; TEMP 97.4–98.1; O2SAT 99
[2024-08-07 04:55] LABS: BASOPHILS # (AUTO) 0.02 K/uL (0.00-0.20); BASOPHILS % (AUTO) 0.3 % (0.0-5.0); EOSINOPHILS # (AUTO) 0.13 K/uL (0.00-0.70); EOSINOPHILS % (AUTO) 1.8 % (0.0-8.0); HEMATOCRIT 40.8 % (42-54); IMMATURE GRANULOCYTE ABSOLUTE 0.02 K/uL (0-1); LYMPHOCYTES # (AUTO) 2.1 K/uL (1.0-4.8); LYMPHOCYTES % (AUTO) 28.9 % (21.0-51.0); MEAN CORPUSCULAR HGB CONC 35.3 g/dL (32.0-36.0); MEAN CORPUSCULAR VOLUME 90.7 fL (79-99); MONOCYTES # (AUTO) 0.7 K/uL (0.1-1.0); MONOCYTES % (AUTO) 9.2 % (3.0-13.0); NEUTROPHILS # (AUTO) 4.4 K/uL (1.8-7.7); NEUTROPHILS % (AUTO) 59.5 % (40.0-77.0); PLATELET COUNT (AUTO) 111 K/uL (130-400); RED CELL DISTRIBUTION WIDTH 12.4 % (11.0-15.5); WHITE BLOOD COUNT (AUTO) 7.3 K/uL (4.8-10.8)
[2024-08-07 05:07] LABS: CREATININE 0.7 mg/dL (0.5-1.3); POTASSIUM 3.1 mmol/L (3.5-5.1)
[2024-08-07] MEDS: PoTASSium chloRIDE 10MEQ/100ML 100 ML IV PRN (06:04)
--- NOTE | 2024-08-07 07:03 | CONS ---
CONSULT NOTE: endo progress note 08/07/24 assessment: DK-resolved, rule out typ1 dm and hold jardiance for now dka resolved. off insulin drip. off insulin drip and currently on lantus 10 units bid and ssi uncontrolled dm-2, hba1c 7.3% plan: continue lantus 10 units bid decrease high dose ssi to medium dose ssi. rule out type 1 dm and follow on rocky-65 abs. monitor glucose [id number] patient will need lantus 20 units daily at home discontinue jardiance at discharge and ok to resume other diabetic meds thanks for allowing me to particpate in patient care and will continue to follow up. CECILIA EID MD Aug 07, 2024 07:02
--- NOTE | 2024-08-07 10:17 | PN ---
This is a 74-year-old male with a history of coronary artery disease status post CABG in 2011, postop atrial fibrillation, type 2 diabetes mellitus and hyperlipidemia. He was admitted 08/05/2024 secondary to DKA and INDU in the setting of intractable nausea and vomiting and was found to be in AF/AFL with rapid ventricular response. His EKG on admission shows coarse atrial fibrillation versus atrial flutter with a ventricular rate of 180 beats per minute. He was started on IV Lopressor for rate control, as well as IV heparin. He underwent CT scan of the abdomen and pelvis 08/05/2024 which showed multiple small stones present in the gallbladder, otherwise unremarkable. Yesterday he was started on low-dose metoprolol tartrate 12.5 mg twice daily and transitioned to Eliquis 5 mg twice daily. He had been in persistent atrial flutter since the day of his admission but converted to sinus rhythm between 7:30 and 7:50 a.m. this morning. He is currently in sinus rhythm with heart rates in the 60s. He offers no new cardiac complaints this morning. On exam, he is in no acute distress, regular rhythm, mildly tachycardic, lungs are clear to auscultation bilaterally, no lower extremity edema is noted. Assessment: 1. Atrial fibrillation/atrial flutter in the setting of DKA. 2. DKA and INDU in the setting of intractable nausea and vomiting. 3. Coronary artery disease status post CABG in 2011. 4. History of postop atrial fibrillation. 5. Type 2 diabetes mellitus. 6. Hyperlipidemia. Plan: 1. He presented with atrial fibrillation/atrial flutter in the setting of DKA. He converted to sinus rhythm this morning between 730-7:50 a.m.. 2. We will start Multaq 400 mg twice daily in order to maintain sinus rhythm and discontinue metoprolol to avoid bradycardia. 3. Continue Eliquis 5 mg twice daily, aspirin 81 mg once daily and atorvastatin 20 mg once daily. 4. He underwent echocardiogram, results pending. Vitals/Labs Vital Signs Date Time Temp Pulse Resp B/P (MAP) Pulse Ox O2 Delivery O2 Flow Rate FiO2 08/07/24 07:00 81 7 122/81 100 Room Air 08/07/24 04:00 97.9 08/06/24 20:00 0 21 Laboratory Tests 08/07/24 04:38 PAVAN EVANS Aug 07, 2024 10:17
[2024-08-07] MEDS: DRONEDARONE HYDROCHLORIDE 400 MG TABLET PO SCH (11:03)
[2024-08-07] MEDS: PoTASSium chloRIDE 20MEQ ER 20 MEQ ERTAB PO PRN (11:34)
--- NOTE | 2024-08-07 13:14 | PN ---
[facility] PROGRESS NOTE Date of Service: Aug 07, 2024 Time of Service: 13:07 SUBJECTIVE: Patient was on subcutaneous insulin, tolerating oral intake, in sinus rhythm REVIEW OF SYSTEMS CONSTITUTIONAL: Asthenia, malaise, weight loss NEUROLOGICAL: Denies headache, amaurosis fugax, motor weakness, sensory deficit, vertigo/spinning sensation, gait abnormalities, or tremors. ENT: No hearing loss, otalgia, otorrhea, rhinitis, rhinorrhea, hoarseness, or sore throat. CARDIOVASCULAR: Denies any exertional angina, dyspnea on exertion, orthopnea, paroxysmal nocturnal dyspnea, palpitations, life-threatening arrhythmias, claudication. PULMONARY: Denies any shortness of breath, cough, phlegm/sputum, hemoptysis, pleuritic chest pain. SLEEP: Denies morning headaches, daytime somnolence or napping. Denies difficulty falling asleep, staying asleep, waking from sleep. Denies knowledge of snoring. GASTROINTESTINAL: Nausea and vomiting for more than a week, unable to tolerate any oral intake GENITOURINARY: Denies frequency, urgency, nocturia, hematuria or incontinence (Storage/Irritative symptoms.) Low urinary stream, straining to void, urinary intermittency or hesitancy, splitting of the voiding stream, terminal dribbling. ENDOCRINOLOGIC: Denies polyuria, polydipsia, polyphagia or heat/cold intolerances. HEMATOLOGIC: Denies thrombophilia/previous clots, or coagulopathy/bleeding disorders. ONCOLOGIC: Denies personal history of malignancy. DERMATOLOGIC: Denies rashes or pruritus. PSYCHIATRIC: Denies any suicidal or homicidal ideation. Denies hallucinations. PHYSICAL EXAM GENERAL APPEARANCE: Patient is awake and alert, appears very frail NEUROLOGICAL: Cranial nerves II-XII grossly intact. Motor is 5/5 in bilateral upper and lower extremities proximal to distal. No sensory deficits. HEENT: Oral mucosa is very dry NECK: Supple. No JVD. No thyromegaly. No submental, submandibular, pre- /postauricular, occipital or supraclavicular lymphadenopathy. CHEST: Normal chest expansion. No Telemetry. LUNGS: Absence of any rales, rhonchi or any wheezing. CARDIOVASCULAR: Regular. S1 and S2 normal. No appreciable rubs, murmurs or gallops. ABDOMEN: Soft, nontender, and nondistended. No significant tenderness noted : Deferred. No Wheeler. EXTREMITIES: Non-edematous and not cyanotic. No clubbing. Good capillary refill. SKIN: No skin breakdown. Vital Signs (last 8hr) Date Time Temp Pulse Resp B/P (MAP) Pulse Ox O2 Delivery O2 Flow Rate FiO2 08/07/24 08:00 99 Room Air* 0 21 08/07/24 07:00 81 7 122/81 100 Room Air 08/07/24 06:00 87 19 121/75 99 Room Air LABS: Laboratory: Test 08/07/24 11:05 08/07/24 04:38 08/06/24 14:52 08/06/24 06:37 Range/Units Whole Blood Glucose 126 H 70-110 MG/DL White Blood Count 7.3 # 4.8-10.8 K/uL Red Blood Count 4.50 4.50-6.20 MIL/uL Hemoglobin 14.4 14.0-18.0 g/dL Hematocrit 40.8 L 42-54 % Mean Corpuscular Volume 90.7 79-99 fL Mean Corpuscular Hemoglobin 32.0 27.0-33.0 pg Mean Corpuscular Hemoglobin Concent 35.3 32.0-36.0 g/dL Red Cell Distribution Width 12.4 11.0-15.5 % Platelet Count 111 L 130-400 K/uL Mean Platelet Volume 10.0 7.5-10.5 fL Immature Granulocyte % (Auto) 0.3 0-1 % Neutrophils (%) (Auto) 59.5 40.0-77.0 % Lymphocytes (%) (Auto) 28.9 21.0-51.0 % Monocytes (%) (Auto) 9.2 3.0-13.0 % Eosinophils (%) (Auto) 1.8 0.0-8.0 % Basophils (%) (Auto) 0.3 0.0-5.0 % Neutrophils # (Auto) 4.4 1.8-7.7 K/uL Lymphocytes # (Auto) 2.1 1.0-4.8 K/uL Monocytes # (Auto) 0.7 0.1-1.0 K/uL Eosinophils # (Auto) 0.13 0.00-0.70 K/uL Basophils # (Auto) 0.02 0.00-0.20 K/uL Absolute Immature Granulocyte (auto 0.02 0-1 K/uL Nucleated Red Blood Cells 0.0 0.0-0.19 % Sodium Level 138 136-145 mmol/L Potassium Level 3.1 L 3.5-5.1 mmol/L Chloride Level 106 101-111 mmol/L Carbon Dioxide Level 28 21-32 mmol/L Blood Urea Nitrogen 11 7-18 mg/dL Creatinine 0.7 0.5-1.3 mg/dL Glomerular Filtration Rate Calc 95 >90 mL/min Random Glucose 75 # 70-105 mg/dL Total Calcium 7.9 L 8.5-10.1 mg/dL Activated Partial Thromboplast Time 97.9 #*H 26.3-35.5 SEC Total Creatine Kinase 63 # 21-232 U/L Troponin I High Sensitivity 62.5 4-75 ng/L Test 08/05/24 16:21 08/05/24 14:14 08/05/24 13:44 08/05/24 13:42 Range/Units Lactic Acid Level 2.2 0.8-2.5 mmol/L Urine Color LIGHT-YELLOW YELLOW Urine Appearance CLEAR CLEAR Urine pH 5.5 5.0-8.0 Urine Specific Warren 1.029 1.001-1.031 Urine Protein 50 H NEGATIVE mg/dL Urine Glucose (UA) >=1000 H NEGATIVE mg/dL Urine Ketones 100 H NEGATIVE mg/dL Urine Occult Blood NEGATIVE NEGATIVE Urine Nitrate NEGATIVE NEGATIVE Urine Bilirubin NEGATIVE NEGATIVE mg/dL Urine Urobilinogen 0.2 0.2-1.0 mg/dL Urine Leukocyte Esterase NEGATIVE NEGATIVE Long/uL Urine RBC 0-1 0-1 /HPF Urine WBC 0-1 0-1 /HPF Urine Bacteria None None Seen /HPF Urine Hyaline Casts 2-5 H 0-1 /LPF /LPF Blood Gas Specimen Type Venous Arterial Blood Oxygen Saturation 91.8 L 94.0-98.0 % Venous Blood pH 7.318 L 7.320-7.430 Venous Blood pCO2 at Patient Temp 25 L 38-54 Venous Blood pO2 at Patient Temp 62.9 H 23.0-48.0 mmHg Venous Blood HCO3 12.6 L 22.0-29.0 Venous Blood Base Excess -10.9 L -2.0-3.0 Venous Blood Total Hemoglobin 20.4 *H 13.5-17.5 Sodium (Blood Gas) 140 136-145 MMOL/L Bedside Potassium (Blood Gas) 4.6 H 3.4-4.5 MMOL/L Bedside Chloride (Blood Gas) 102 98-107 MMOL/L Bedside Glucose (Blood Gas) 305 H 65-95 MG/DL Bedside Ionized Calcium (Blood Gas) 1.27 1.15-1.33 MMOL/L Bedside Lactic Acid (Blood Gas) 3.22 *H 0.36-0.75 MMOL/L Blood Gas Temperature 37.0 35.5-37.0 CELSIUS Blood Gas Vent Mode RA ROOM AIR FiO2 21.0 % Blood Gas Specimen Comment [facility] Whole Blood Ketones Quantitative 6.7 H 0.0-0.6 mmol/L Uric Acid 9.7 H 2.6-7.2 mg/dL Phosphorus Level 4.3 2.5-4.9 mg/dL Magnesium Level 2.30 1.80-2.40 mg/dL Procalcitonin < 0.05 L 0.05-0.5 ng/mL Thyroid Stimulating Hormone (TSH) 0.92 0.36-3.74 uIU/mL Current Medications Medications (Trade) Dose Ordered Sig/Maegan Route PRN Reason Start Time Stop Time Status Last Admin Dose Admin Acetaminophen (TYLenol 325MG TAB) 650 mg Q6H PRN PO MILD PAIN (1-3) 08/05/24 13:30 09/04/24 13:29 Apixaban (EliquIS) 5 mg BID PO 08/06/24 21:00 09/05/24 20:59 08/07/24 08:30 5 MG Aspirin (Aspirin 81mg Ec Tab) 81 mg DAILY PO 08/06/24 09:00 09/05/24 08:59 08/07/24 08:30 81 MG Atorvastatin Calcium (LIPItor 20MG) 20 mg HS PO 08/06/24 21:00 09/05/24 20:59 08/06/24 20:37 20 MG Dextrose/Sodium Chloride 1,000 ml @ 0 mls/hr AD IV 08/05/24 14:30 08/06/24 14:17 DC Dronedarone (Multaq) 400 mg BID PO 08/07/24 10:30 09/06/24 10:29 08/07/24 11:03 400 MG Heparin Sodium (Porcine) (HEParin 5,000 UNIT VIAL) 5,000 unit ONCE IV 08/05/24 19:00 08/05/24 21:00 DC 08/05/24 19:45 5,000 UNIT Heparin Sodium/ Dextrose 250 ml @ 0 mls/hr Q6H IV 08/05/24 17:00 08/06/24 11:26 DC 08/05/24 18:31 10.79 MLS/HR Insulin Glargine (LANtus 100 UNITS/ML 10 ML VIAL) 10 units BID@0730,2100 SQ 08/05/24 21:00 09/04/24 20:59 08/07/24 08:33 10 UNITS Insulin Human Regular (humuLIN R 100 UNIT/ML 3ML) INSULIN SLIDING SCAL... ACHS SQ 08/06/24 16:30 09/05/24 16:29 08/06/24 20:40 8 UNIT Insulin Human Regular 100 unit/ Sodium Chloride 101 ml @ 0 mls/hr PROTOCOL IV 08/05/24 14:30 08/06/24 14:17 DC 08/05/24 17:10 6.35 MLS/HR Lactated Ringer's (Lactated Ringers 1000ml) 1,000 ml ONCE IV 08/05/24 19:00 08/06/24 11:26 DC 08/05/24 19:02 1,000 ML Magnesium Sulfate 50 ml @ 0 mls/hr PROTOCOL IV 08/05/24 14:30 09/04/24 14:29 Metoprolol Tartrate (loprESSOR) 5 mg Q8H PRN IV INCREASED HEART RATE 08/05/24 18:30 09/04/24 18:29 Metoprolol Tartrate (loprESSOR) 12.5 mg BID PO 08/06/24 11:30 08/07/24 10:16 DC 08/07/24 08:30 12.5 MG Multivitamins/ Minerals 10 ml/ Folic Acid 1 mg/ Thiamine HCl 100 mg/Sodium Chloride 1,010 ml @ 100 mls/hr DAILY IV 08/05/24 14:00 08/05/24 14:30 DC Ondansetron HCl (zoFRAN 4MG INJ) 4 mg Q6H PRN IVP NAUSEA/VOMITING 08/05/24 13:30 09/04/24 13:29 08/05/24 17:10 4 MG Pantoprazole Sodium (PROTonix 40MG INJ) 40 mg Q24H IVP 08/05/24 13:30 09/04/24 13:29 08/06/24 11:53 40 MG Piperacillin Sod/ Tazobactam Sod (Zosyn 3.375gm+NS 50ml) 3.375 gm ONCE IVPB 08/05/24 15:00 08/05/24 15:22 DC Piperacillin Sod/ Tazobactam Sod (Zosyn 3.375gm+NS 50ml) 3.375 gm ZOSY8 IVPB 08/05/24 21:00 08/15/24 20:59 08/07/24 05:12 3.375 GM Potassium Chloride 20 meq/ Sodium Chloride 1,010 ml @ 0 mls/hr PROTOCOL IV 08/05/24 14:30 08/06/24 14:17 DC Potassium Chloride/Dextrose/ Sod Cl 1,000 ml @ 0 mls/hr AD IV 08/05/24 14:30 08/06/24 14:17 DC 08/06/24 08:04 150 MLS/HR Potassium Chloride 100 ml @ 0 mls/hr PROTOCOL PRN IV DKA POTASSIUM REPLACEMENT 08/05/24 14:30 09/04/24 14:29 08/07/24 06:04 100 MLS/HR Potassium Chloride (K-Dur/Klor-Con 20meq) 20 meq AD PRN PO POTASSIUM PROTOCOL 08/07/24 11:30 09/06/24 11:29 08/07/24 11:34 20 MEQ Sodium Chloride 1,000 ml @ 200 mls/hr PROTOCOL IV 08/05/24 14:30 08/06/24 14:17 DC Sodium Chloride (NS 50ml) 50 ml AD IV 08/05/24 15:02 08/06/24 07:28 DC 08/06/24 06:09 50 ML Thiamine HCl (Vitamin B-1) 200 mg Q24H IVP 08/05/24 13:30 09/04/24 13:29 08/06/24 11:53 200 MG DIAGNOSTICS / RADIOLOGY: [ ] ASSESSMENT: Acute diabetic ketoacidosis, POA Severe dehydration with hemoconcentration, POA Atrial fibrillation with RVR, POA Acute kidney injury, POA Severe protein calorie malnutrition, POA History of SGLT2 inhibitor use as outpatient (Jardiance), POA History of Ozempic use as outpatient, POA Demand ischemia, POA Mild hepatitis, POA Leukocytosis, POA Debility/frailty, POA Intractable nausea and vomiting times nine days, POA Hypertension, POA Hyperlipidemia, POA PLAN: Neurological: Daily neurochecks Cardiovascular: MAP goal greater than 65 mmHg Monitor for arrhythmias and blood pressure Follow up with Cardiology -switch to Multaq -continue Eliquis, aspirin, atorvastatin -follow up echocardiogram Respiratory: Keep O2 sats greater than 92% Follow-up with pulm crit Gastrointestinal: GI prophylaxis with famotidine Cardiac diet Renal: Continue IV diuresis with Lasix, monitor for worsening renal function Replete electrolytes as per protocol Trend a.m. BMP Hemo/Onc: Daily CBC DVT prophylaxis with SCDs Lovenox Endocrine: Glucose checks a.c. and HS Hypoglycemia protocol Follow up with endocrinology ID: Continue Zosyn Trend WBCs Follow up blood and sputum cultures CODE STATUS: Full code Discussion: No family at the bedside today Case was discussed with bedside nurse and case management Critical care Attention time: greater than 30 minutes TAWNY VALLES IV, MD Aug 07, 2024 13:14
--- NOTE | 2024-08-07 14:02 | EKG ---
[facility] Test Date: 2024-08-07 Test Time: 13:02:11 Pat Name: ANDREEA JOSEPH Department: [facility] Room: 219 1 Gender: M Mason Tender: milagro : [id number] Requested By: PAVAN EVANS Order Number: [id number] Reading MD: Toy Randall Measurements Intervals [place] Rate: 67 P: -17 NM: 260 QRS: 2 QRSD: 87 T: 35 QT: 412 QTc: 432 Interpretive Statements Sinus rhythm Atrial premature complex Prolonged NM interval Compared to ECG 08/05/2024 13:18:03 Atrial premature complex(es) now present First degree AV block now present Atrial fibrillation no longer present Electronically Signed On 08-08-2024 16:03:59 [employer] by Toy Randall Please click the below link to view image of tracing.
--- NOTE | 2024-08-07 15:13 | PN ---
[facility] PROGRESS NOTE Date Patient Seen: Aug 07, 2024 Time of Visit: 15:09 Supervising Physician: Dr. Diaz Consult Physician: Hospitalist group Outpatient Specialists: [ ] Inpatient Consults: [ ] PROBLEM LIST: Diabetic ketoacidosis, POA resolved High anion gap metabolic acidosis, POA Intractable nausea and vomiting, POA NSTEMI, POA Leukocytosis, POA Severe dehydration, POA Electrolyte abnormality, POA Acute abdominal pain, POA Gallstone, POA DM type 2, with hyperglycemia, poorly controlled, current HGB A1c of 7.3 POA Hypertension, POA Hyperlipidemia, POA GERD, POA INTERVAL HISTORY: 08/06/2024: At the time of my evaluation, the patient is lying in bed. He is awake alert and verbally interactive with the appropriate responses. The patient is on room air and with optimal oxygen saturation. On the monitor, he is hemodynamically stable. He remains on heparin drip due to AFib/flutter. On chemistry, the patient has a sodium of 138, potassium of 3.6, chloride of 106, CO2 of 23, BUN 19, creatinine 1.0 and a blood glucose of 173 cumulative balance was + 2531.1. The patient with a gap of nine and remains on a insulin drip. No other complaint. 08/07/2024: At the time of my evaluation, the patient is lying in bed. The staff nurse reports no acute events overnight. The patient is awake alert and verbally interactive with the appropriate responses. He is on room air with optimal oxygen saturation. Vital signs are stable. On the monitor, the patient remains in sinus rhythm. I's and O's shows a cumulative balance of + 4242.2. CBC was unremarkable. Chemistry panel was notable for a potassium of 3.2. Blood cultures are in progress and showing no growth. The patient remains on antibiotic coverage with IV Zosyn. No other complaint. REVIEW OF SYSTEMS: 12 point ROS reviewed with patient. Pertinent positives mentioned above. Otherwise negative. PHYSICAL EXAM: GENERAL: alert, weak, awake oriented x 3 HEENT: EOMI, Sclera non icteric, moist mucosa NECK: Supple, no JVD, trachea midline LUNGS: Clear breath sounds bilaterally. No wheezes HEART: Sinus tach on the monitor, Normal S1 and S2, without murmurs ABD: Abdomen soft, nontender. Bowel sounds present EXT: No clubbing cyanosis or edema NEURO: Alert and oriented to person, follows commands Vital Signs (last 8hr) Date Time Temp Pulse Resp B/P (MAP) Pulse Ox O2 Delivery O2 Flow Rate FiO2 08/07/24 13:45 97.3 70 13 132/70 100 Room Air 08/07/24 11:45 68 17 135/65 98 Room Air 08/07/24 09:45 65 17 114/63 97 Room Air 08/07/24 08:45 65 16 125/63 98 Room Air 08/07/24 08:00 99 Room Air* 0 21 LABS: Hematology Labs: Test 08/07/24 04:38 Range/Units White Blood Count 7.3 # 4.8-10.8 K/uL Red Blood Count 4.50 4.50-6.20 MIL/uL Hemoglobin 14.4 14.0-18.0 g/dL Hematocrit 40.8 L 42-54 % Mean Corpuscular Volume 90.7 79-99 fL Mean Corpuscular Hemoglobin 32.0 27.0-33.0 pg Mean Corpuscular Hemoglobin Concent 35.3 32.0-36.0 g/dL Red Cell Distribution Width 12.4 11.0-15.5 % Platelet Count 111 L 130-400 K/uL Mean Platelet Volume 10.0 7.5-10.5 fL Immature Granulocyte % (Auto) 0.3 0-1 % Neutrophils (%) (Auto) 59.5 40.0-77.0 % Lymphocytes (%) (Auto) 28.9 21.0-51.0 % Monocytes (%) (Auto) 9.2 3.0-13.0 % Eosinophils (%) (Auto) 1.8 0.0-8.0 % Basophils (%) (Auto) 0.3 0.0-5.0 % Neutrophils # (Auto) 4.4 1.8-7.7 K/uL Lymphocytes # (Auto) 2.1 1.0-4.8 K/uL Monocytes # (Auto) 0.7 0.1-1.0 K/uL Eosinophils # (Auto) 0.13 0.00-0.70 K/uL Basophils # (Auto) 0.02 0.00-0.20 K/uL Absolute Immature Granulocyte (auto 0.02 0-1 K/uL Nucleated Red Blood Cells 0.0 0.0-0.19 % Chemistry Labs: Test 08/07/24 11:05 08/07/24 04:38 08/06/24 06:37 08/05/24 16:21 Range/Units Whole Blood Glucose 126 H 70-110 MG/DL Sodium Level 138 136-145 mmol/L Potassium Level 3.1 L 3.5-5.1 mmol/L Chloride Level 106 101-111 mmol/L Carbon Dioxide Level 28 21-32 mmol/L Blood Urea Nitrogen 11 7-18 mg/dL Creatinine 0.7 0.5-1.3 mg/dL Glomerular Filtration Rate Calc 95 >90 mL/min Random Glucose 75 # 70-105 mg/dL Total Calcium 7.9 L 8.5-10.1 mg/dL Total Creatine Kinase 63 # 21-232 U/L Troponin I High Sensitivity 62.5 4-75 ng/L Lactic Acid Level 2.2 0.8-2.5 mmol/L Coagulation Labs: Test 08/06/24 14:52 Range/Units Activated Partial Thromboplast Time 97.9 #*H 26.3-35.5 SEC DIAGNOSTICS / RADIOLOGY RESULTS: [ ] PLAN 08/07/2024: For now, going to continue current management for the patient. We will continue to monitor for any arrhythmias. The patient was started on Multaq for management of his AFib and continues on apixaban. The patient continues on Lantus 10 units b.i.d. and insulin per sliding scale. Blood glucose trend have improved, most recently a blood glucose of 126. Patient reports feeling much better today. We will continue to monitor the patient's progress and response to management. We will continue to provide general supportive care, GI and DVT prophylaxis. Further orders per attending MD and hospital course. NEURO: Minimize central acting medications as possible. Maintain fall precautions, adequate lighting during the day PULMONARY: Supplemental 02 as needed. Maintain aspiration precautions at all times CARDIOVASCULAR: Follow hemodynamics. Vital signs per facility protocol GI & NUTRITION: Continue with nutritional support. Continue stool softeners and laxatives as needed. KIDNEYS & ELECTROLYTES: Strict monitoring of intake, output and overall fluid balance. Avoid nephrotoxic medications to the extent possible. Medications to be dosed according to renal function. Monitor electrolytes and replace as needed ENDOCRINE: Maintain blood glucose between 100-180 at all times. Hypoglycemia protocol in place INFECTIOUS DISEASE: Trend temperature, WBC and procalcitonin level Follow cultures, deescalate antibiotics as soon as possible. Panculture if new onset fever ONCOLOGY/HEMATOLOGY/COAGULATION: Monitor for s/s of bleeding Monitor hemoglobin, coagulation studies as needed SKIN: Pressure ulcer prevention per facility protocol Specialty mattress ORTHO/REHAB: Continue PT/OT Prophylaxis: Continue GI and DVT prophylaxis Code Status: Full Resuscitation Disposition: TBD Other: Total patient care time exceeds 35 minutes excluding all procedures. PHUONG MORALES NP Aug 07, 2024 15:13
--- NOTE | 2024-08-07 15:21 | NUR ---
DR VALLES IN TO ROUND ON PT. PT DESIRES TO GO HOME TODAY. AWAITING ON LIVER ON ENZYMES. ALEXANDREA BROWNE FOR CARDIOLOGY ALSO MADE AWARE. CARDIOLOGY AWAITING ON ECHO RESULTS. LIKELY DISCHARGE TOMORROW PER ALEXANDREA BROWNE.
[2024-08-07 15:25] LABS: ALBUMIN 2.5 g/dL (3.5-5.0); BILIRUBIN,DIRECT 0.4 mg/dL (0.0-0.3); BILIRUBIN,TOTAL 1.4 mg/dL (0.2-1.0); TOTAL PROTEIN, SERUM 5.4 g/dL (6.0-8.3)
--- NOTE | 2024-08-07 19:26 | NUR ---
DCP Patient states Susan Chapin from [place] lives on [address] on the second floor, no elevator and a tub. States retired, remains independent and drives self. States able to complete ADL's on his own. Denies medical devices. Denies home health services, home care providers and dialysis. PCP - [facility], Ciara Powell DO Pharmacy - [facility]. Upon discharge, Glenna Stevenson, Spouse [phone], planning to return to [place] within the week if not sooner. [facility] insurance should be filled with [place], will bring insurance cards tomorrow and referred to [facility] [phone]. Gave them information process for medical records. Addendum: 08/07/24 at 1932 by ADAM MOODY RN CM Amended: Links added.
[2024-08-08] VITALS: BP 102/49; PULSE 69; RESP 15; TEMP 98.2; O2SAT 99
--- NOTE | 2024-08-08 00:06 | HMCSR ---
APPROVED REPORT EXAM: Two-dimensional and M-mode echocardiogram with Doppler and color Doppler. INDICATION ICD: Atrial Fibrillation 2D Dimensions RVDd3.7 cmLVEF(%)48.1 (>50%)LVED Vol(simp.)82.0 mL IVSd1.1 (0.7-1.1cm)FS(%)23 %LVES Vol(simp.)40.0 mL LVDd3.2 (3.8-5.6cm)LA (2D)4.1 (1.6-4.0cm)LVEF(%, simp.)51 % PWd1.2 (0.7-1.1cm)Ao Root(2D)3.6 (2.0-3.7cm)LA ESV INDEX (4CH)33.72 mL/m2 IVSs1.8 cmLVOT diam2.2 (1.8-2.4cm)LA ESV INDEX (2CH)36.04 mL/m2 LVDs2.5 (2.5-4.0cm)LA ESV INDEX (BP)35.17 mL/m2 PWs1.4 cm Deformation Strain Apical 4-16.0 % Apical 2-13.0 % Apical 3-13.0 % Global Strain-14.0 % M-Mode Dimensions EPSS0.4 cm LA (MM)4.0 (1.6-4.0cm) Ao Root(MM)3.9 (2.0-3.7cm) Aortic Valve AoV Vmax1.0 m/Yusra Peak GR4.2 mmHgLVOT Vmax0.7 m/s AoV VTI0.2 mAo Mean GR2.4 mmHgLVOT VTI0.14 m LUIS (VMAX)3.0 cm2Al P1/2T572 msAVA (VTI) 3.0 cm2 Mitral Valve MV E Vmax89.2 cm/sDECEL Yztt183 ms MV A Vmax31.9 cm/sP 1/2 T50 ms E/A ratio2.8MVA (PHT)4.4 cm2 TDI E/E' Medial7.0 Tricuspid Valve TR Vmax1.8 m/sRVSP12.4 mmHg TR Peak GR12.4 mmHg Left Ventricle The left ventricle is normal in size. No regional wall motion abnormalities noted. Mild concentric le ft ventricular hypertrophy. Sigmoid shaped septum noted. Left ventricle systolic function is low norm al, estimated LVEF 50 to 55%. Indeterminate diastolic dysfunction. Right Ventricle The right ventricle is normal size. Right ventricular systolic function is grossly normal. Atria The left atrium size is normal. The right atrium size is normal. Aortic Valve Aortic valve is trileaflet. The leaflets are mildly thickened and calcified. Mild aortic regurgitatio n. Small size, freely mobile, filamentous structure seen on the aortic valve that is thought to be a Lambl's excursions. There is no aortic valvular stenosis. Mitral Valve Mild mitral annular calcification is noted. The leaflets are mildly thickened and calcified. Trace mi tral regurgitation. There is no mitral valve stenosis. Tricuspid Valve The tricuspid valve is normal in structure and function. Trace tricuspid regurgitation. RVSP is 12 mm Hg. Pulmonic Valve Pulmonic valve is not well visualized. Great Vessels The aortic root is normal in size. The IVC was not visualized. Pericardium No pericardial effusion. Conclusion The cardiac chambers are normal in size. Mild concentric left ventricular hypertrophy. Sigmoid shaped septum noted. No regional wall motion abnormalities noted. Left ventricle systolic function is low normal, estimated LVEF 50 to 55%. Indeterminate diastolic dysfunction. Mild aortic regurgitation. Small size, freely mobile, filamentous structure seen on the aortic valve that is thought to be a Rizvi bl's excursions. Clinical correlation is advised. Trace mitral regurgitation. Trace tricuspid regurgitation. RVSP is 12 mmHg. No pericardial effusion.
[2024-08-08 04:00] VITALS: BP 111/54; PULSE 65; RESP 13; TEMP 98.3
[2024-08-08 04:34] LABS: BASOPHILS # (AUTO) 0.03 K/uL (0.00-0.20); BASOPHILS % (AUTO) 0.5 % (0.0-5.0); EOSINOPHILS # (AUTO) 0.33 K/uL (0.00-0.70); EOSINOPHILS % (AUTO) 5.8 % (0.0-8.0); HEMATOCRIT 36.2 % (42-54); IMMATURE GRANULOCYTE ABSOLUTE 0.01 K/uL (0-1); LYMPHOCYTES # (AUTO) 1.7 K/uL (1.0-4.8); MEAN CORPUSCULAR HEMOGLOBIN 31.8 pg (27.0-33.0); MEAN CORPUSCULAR HGB CONC 35.1 g/dL (32.0-36.0); MEAN CORPUSCULAR VOLUME 90.5 fL (79-99); MONOCYTES # (AUTO) 0.6 K/uL (0.1-1.0); MONOCYTES % (AUTO) 10.4 % (3.0-13.0); NEUTROPHILS % (AUTO) 53.1 % (40.0-77.0); PLATELET COUNT (AUTO) 109 K/uL (130-400); RED CELL DISTRIBUTION WIDTH 12.4 % (11.0-15.5); WHITE BLOOD COUNT (AUTO) 5.7 K/uL (4.8-10.8)
[2024-08-08 07:17] VITALS: BP 117/62; PULSE 64; RESP 22; TEMP 98.1
[2024-08-08 07:32] LABS: CREATININE 0.8 mg/dL (0.5-1.3); POTASSIUM 3.5 mmol/L (3.5-5.1)
[2024-08-08 07:35] VITALS: O2SAT 99
[2024-08-08 10:58] VITALS: BP 121/65; PULSE 69; RESP 20; TEMP 97.2
[2024-08-08] MEDS ORDERED: APIX5TAB PO (11:51)
[2024-08-08] MEDS ORDERED: DRON400T7 PO (11:51)
--- NOTE | 2024-08-08 11:55 | PN ---
Cardiology Progress Note Date of Service: 08/08/2024 Attending Steam Drier Tender: Dr. Linda Hernández Reason for Consult: Paroxysmal atrial fibrillation with RVR Problem List: -Severe sepsis -Leukocytosis -Lactic acidosis -Viral gastroenteritis -Volume depletion -DKA, resolved -INDU, resolved -Paroxysmal atrial fibrillation with RVR -Low normal LV systolic function (LVEF: 50-55% by echo done 08/06/2024) -Right midlung bleb or bulla -Normocytic normochromic anemia -Thrombocytopenia -CAD s/p CABG -HTN -HLP -DM2 Subjective: This is a 74y/o male who was seen and evaluated in the ICU today. The patient denies any active complaints including chest pain, chest pressure, palpitations, shortness of breath, or abdominal pain. As per the nurse, there were no overnight events. Vitals/Labs Vital Signs Date Time Temp Pulse Resp B/P (MAP) Pulse Ox O2 Delivery O2 Flow Rate FiO2 08/08/24 10:58 97.2 69 20 121/65 100 Room Air 08/08/24 07:35 0 21 General: Awake and alert. No acute distress. HEENT: Normocephalic, atraumatic. EOMI. PERRL. Oral mucosa was moist. Neck: No masses, JVD or carotid bruits noted. Lungs: No respiratory distress. SCM. Bilaterally clear to auscultation. No obvious wheezing, rales, or rhonchi. Cardio: Regular rate. Normal S1 and S2. No obvious murmurs, rubs, or gallops. Abdomen: Soft, non-tender, non-distended. No organomegaly. Normal active bowel sounds x 4 quadrants. Extremities: No edema, clubbing, or cyanosis. Palpable distal pulses. Neuro: CN II-XII were grossly intact. No obvious focal deficits. Laboratory Tests 08/07/24 16:02 08/08/24 04:19 Assessment: -Severe sepsis -Leukocytosis -Lactic acidosis -Viral gastroenteritis -Volume depletion -DKA, resolved -INDU, resolved -Paroxysmal atrial fibrillation with RVR -Low normal LV systolic function (LVEF: 50-55% by echo done 08/06/2024) -Right midlung bleb or bulla -Normocytic normochromic anemia -Thrombocytopenia -CAD s/p CABG -HTN -HLP -DM2 Plan: 1.Paroxysmal atrial fibrillation with RVR -Substrate: Unknown -12H telemetry: Sinus rhythm with rare PVCs, no recurrent atrial fibrillation noted -Currently stable, asymptomatic, and in a sinus rhythm -The patient will continue on Multaq 400 mg BID. -CHADS2 VASc score: 5 points. The patient will continue on Eliquis 5 mg BID. 2. CAD s/p CABG -Stable -HS troponin I peak: 78 -2D echocardiogram 08/06/2024: The cardiac chambers are normal in size. Mild concentric LVH with a sigmoid shaped septum with no regional wall motion abnormalities noted. LV systolic function is low normal with an estimated LVEF of 50-55% with indeterminate diastolic function. Mild AR. There is a small size, freely mobile, filamentous structure seen on the AV that is thought to be a Lambl's excursion. Trace MR and TR. RVSP is 12 mmHg. No pericardial effusion. -The patient will continue on aspirin 81 mg daily and atorvastatin 20 mg QHS. The patient can be discharged from a Cardiac Standpoint. Please have the patient follow up with his Primary Steam Drier Tender in [place], 2-3 weeks after discharge. LINDA HERNÁNDEZ MD Aug 08, 2024 11:55
--- NOTE | 2024-08-08 12:08 | CONS ---
CONSULT NOTE: endocrinology consult chief complaint: nausea and vomiting reason for consult: uncontrolled dm-2 and DKA Date of Service: Aug 08, 2024 HISTORY OF PRESENT ILLNESS: 74-year-old male with underlying history of hypertension, atrial fibrillation, type 2 diabetes mellitus, hyperlipidemia, history of coronary artery disease with prior history of multivessel CABG, presented to the ER for further evaluation of nausea, vomiting and poor oral intake. Patient has a history of type 2 diabetes mellitus, and he is maintained on outpatient regimen with metformin 1000 mg bid, glipizide 5 mg daily, Jardiance 25 mg daily, and also Ozempic 0.5 mg weekly. Last dose of Ozempic was about two weeks ago. He has not been able to take any oral medication for about a week including metoprolol which he takes for atrial fibrillation. Denies being on outpatient anticoagulation. Reports he was diagnosed with atrial fibrillation after he had coronary artery bypass grafting about 11-12 years ago. On presentation to the hospital, patient was noted to be afebrile with heart ra te trending between 120s-150s. Patient was noted to be in atrial fibrillation with RVR. [place] [address], hemoglobin of 20.2, platelet count of [id number]. CMP remarkable for sodium of 138, potassium 4.5, creatinine of 1.6, lactic acid of 4.1, high sensitivity cardiac troponin of 78, AST of 53, ALT of 92, alkaline phosphatase of 141. Chest x-ray showed no acute infiltrates. Patient was found to be in DKA and started on insulin drip. off insulin and DKA resolved. outpatient regimen: metformin 1000 mg bid, glipizide 5 mg daily, Jardiance 25 mg daily, and also Ozempic 0.5 mg weekly. REVIEW OF SYSTEMS CONSTITUTIONAL: Asthenia, malaise, weight loss NEUROLOGICAL: Denies headache, amaurosis fugax, motor weakness, sensory deficit, vertigo/spinning sensation, gait abnormalities, or tremors. ENT: No hearing loss, otalgia, otorrhea, rhinitis, rhinorrhea, hoarseness, or sore throat. CARDIOVASCULAR: Denies any exertional angina, dyspnea on exertion, orthopnea, paroxysmal nocturnal dyspnea, palpitations, life-threatening arrhythmias, claudication. PULMONARY: Denies any shortness of breath, cough, phlegm/sputum, hemoptysis, pleuritic chest pain. SLEEP: Denies morning headaches, daytime somnolence or napping. Denies dif ficulty falling asleep, staying asleep, waking from sleep. Denies knowledge of snoring. GASTROINTESTINAL: Nausea and vomiting has improved. GENITOURINARY: Denies frequency, urgency, nocturia, hematuria or incontinence (Storage/Irritative symptoms.) Low urinary stream, straining to void, urinary intermittency or hesitancy, splitting of the voiding stream, terminal dribbling. ENDOCRINOLOGIC: Denies polyuria, polydipsia, polyphagia or heat/cold intole rances. HEMATOLOGIC: Denies thrombophilia/previous clots, or coagulopathy/bleeding disorders. ONCOLOGIC: Denies personal history of malignancy. DERMATOLOGIC: Denies rashes or pruritus. PSYCHIATRIC: Denies any suicidal or homicidal ideation. Denies hallucinations. PAST MEDICAL HISTORY: Hypertension, hyperlipidemia, coronary artery disease, atrial fibrillation, type 2 diabetes mellitus PAST SURGICAL HISTORY: History of coronary artery bypass grafting, about 12 years ago PAST SOCIAL HISTORY: Patient is from [place], visiting [facility], patient denies active smoking or alcohol consumption FAMILY HISTORY: Denies pertinent family history Allergies: Patient reports allergic reaction to erythromycin Medications: will be bringing home medication list to be reconciled and updated Coded Allergies: No Known Allergies (Unverified Allergy, Unknown, 08/05/24) PHYSICAL EXAM GENERAL APPEARANCE: Patient is awake and alert, appears very frail NEUROLOGICAL: Cranial nerves II-XII grossly intact. Motor is 5/5 in bilateral upper and lower extremities proximal to distal. No sensory deficits. HEENT: Oral mucosa is very dry NECK: Supple. No JVD. No thyromegaly. No submental, submandibular, pre- /postauricular, occipital or supraclavicular lymphadenopathy. CHEST: Normal chest expansion. No Telemetry. LUNGS: Absence of any rales, rhonchi or any wheezing. CARDIOVASCULAR: Regular. S1 and S2 normal. No appreciable rubs, murmurs or gallops. ABDOMEN: Soft, nontender, and nondistended. No significant tenderness noted : Deferred. No Wheeler. EXTREMITIES: Non-edematous and not cyanotic. No clubbing. Good capillary refill. SKIN: No skin breakdown. DIAGNOSTICS / RADIOLOGY: SERVICE 1328 REASON: assess for any signficant infiltrates ORDERING PHYSICIAN: VENUS GRIDER MD PROCEDURE: CXR1VW - CHEST 1VW CHEST 1VW REASON: assess for any signficant infiltrates COMPARISON: None. FINDINGS: Lungs are free of mass or infiltrate. There is a bleb or bulla present in the right midlung. There are mildly increased interstitial markings. Heart size is normal. There is no vascular congestion or pleural effusion. There is been a previous median sternotomy. IMPRESSION: 1. Probable bleb or bulla in the right midlung. 2. No acute finding seen in the chest. DICTATED BY: TIM HUITRON MD DATE: 08/05/241400 ELECTRONICALLY SIGNED BY: TIM HUITRON MD DATE: 08/05/241403 ASSESSMENT: Acute diabetic ketoacidosis, POA Severe dehydration with hemoconcentration, POA Atrial fibrillation with RVR, POA Acute kidney injury, POA Severe protein calorie malnutrition, POA History of SGLT2 inhibitor use as outpatient (Jardiance), POA History of Ozempic use as outpatient, POA Demand ischemia, POA Mild hepatitis, POA Leukocytosis, POA Debility/frailty, POA Intractable nausea and vomiting times nine days, POA Hypertension, POA Hyperlipidemia, POA assessment: DK-resolved, rule out typ1 dm and hold jardiance for now dka resolved. off insulin drip. off insulin drip and currently on lantus 10 units bid and ssi uncontrolled dm-2, hba1c 7.3% outpatient regimen: metformin 1000 mg bid, glipizide 5 mg daily, Jardiance 25 mg daily, and also Ozempic 0.5 mg weekly. plan: continue lantus 10 units bid decrease high dose ssi to medium dose ssi. rule out type 1 dm and follow on rocky-65 abs. monitor glucose [id number] patient will need lantus 20 units daily at home. prescription given. discontinue jardiance at discharge and ok to resume other diabetic meds Vital Signs 08/08/24 08/08/24 07:35 10:58 Temp 97.2 Pulse 69 Resp 20 B/P (MAP) 121/65 Pulse Ox 100 O2 Delivery Room Air O2 Flow Rate 0 FiO2 21 Hematology Labs: Test 08/08/24 04:19 Range/Units White Blood Count 5.7 4.8-10.8 K/uL Red Blood Count 4.00 L 4.50-6.20 MIL/uL Hemoglobin 12.7 L 14.0-18.0 g/dL Hematocrit 36.2 L 42-54 % Mean Corpuscular Volume 90.5 79-99 fL Mean Corpuscular Hemoglobin 31.8 27.0-33.0 pg Mean Corpuscular Hemoglobin Concent 35.1 32.0-36.0 g/dL Red Cell Distribution Width 12.4 11.0-15.5 % Platelet Count 109 L 130-400 K/uL Mean Platelet Volume 10.3 7.5-10.5 fL Immature Granulocyte % (Auto) 0.2 0-1 % Neutrophils (%) (Auto) 53.1 40.0-77.0 % Lymphocytes (%) (Auto) 30.0 21.0-51.0 % Monocytes (%) (Auto) 10.4 3.0-13.0 % Eosinophils (%) (Auto) 5.8 0.0-8.0 % Basophils (%) (Auto) 0.5 0.0-5.0 % Neutrophils # (Auto) 3.0 1.8-7.7 K/uL Lymphocytes # (Auto) 1.7 1.0-4.8 K/uL Monocytes # (Auto) 0.6 0.1-1.0 K/uL Eosinophils # (Auto) 0.33 0.00-0.70 K/uL Basophils # (Auto) 0.03 0.00-0.20 K/uL Absolute Immature Granulocyte (auto 0.01 0-1 K/uL Nucleated Red Blood Cells 0.0 0.0-0.19 % Chemistry Labs: Test 08/08/24 07:39 08/08/24 04:19 08/07/24 04:38 Range/Units Whole Blood Glucose 75 # 70-110 MG/DL Sodium Level 141 136-145 mmol/L Potassium Level 3.5 3.5-5.1 mmol/L Chloride Level 107 101-111 mmol/L Carbon Dioxide Level 32 21-32 mmol/L Blood Urea Nitrogen 13 7-18 mg/dL Creatinine 0.8 0.5-1.3 mg/dL Glomerular Filtration Rate Calc 92 >90 mL/min Random Glucose 74 70-105 mg/dL Total Calcium 8.0 L 8.5-10.1 mg/dL Total Bilirubin 1.4 H 0.2-1.0 mg/dL Direct Bilirubin 0.4 H 0.0-0.3 mg/dL Aspartate Amino Transf (AST/SGOT) 52 H 10-37 U/L Alanine Aminotransferase (ALT/SGPT) 60 12-78 U/L Alkaline Phosphatase 75 50-136 U/L Total Protein 5.4 L 6.0-8.3 g/dL Albumin 2.5 L 3.5-5.0 g/dL Coagulation Labs: Test 08/06/24 14:52 Range/Units Activated Partial Thromboplast Time 97.9 #*H 26.3-35.5 SEC Current Medications Medications (Trade) Dose Ordered Sig/Maegan Route Start Time Stop Time Status Last Admin Dose Admin Apixaban (EliquIS) 5 mg BID PO 08/06/24 21:00 09/05/24 20:59 08/08/24 07:45 5 MG Aspirin (Aspirin 81mg Ec Tab) 81 mg DAILY PO 08/06/24 09:00 09/05/24 08:59 08/08/24 07:45 81 MG Atorvastatin Calcium (LIPItor 20MG) 20 mg HS PO 08/06/24 21:00 09/05/24 20:59 08/07/24 20:52 20 MG Dextrose/Sodium Chloride 1,000 ml @ 0 mls/hr AD IV 08/05/24 14:30 08/06/24 14:17 DC Dronedarone (Multaq) 400 mg BID PO 08/07/24 10:30 09/06/24 10:29 08/08/24 07:45 400 MG Heparin Sodium (Porcine) (HEParin 5,000 UNIT VIAL) 5,000 unit ONCE IV 08/05/24 19:00 08/05/24 21:00 DC 08/05/24 19:45 5,000 UNIT Heparin Sodium/ Dextrose 250 ml @ 0 mls/hr Q6H IV 08/05/24 17:00 08/06/24 11:26 DC 08/05/24 18:31 10.79 MLS/HR Insulin Glargine (LANtus 100 UNITS/ML 10 ML VIAL) 10 units BID@0730,2100 SQ 08/05/24 21:00 09/04/24 20:59 08/08/24 07:43 10 UNITS Insulin Human Regular (humuLIN R 100 UNIT/ML 3ML) INSULIN SLIDING SCAL... ACHS SQ 08/06/24 16:30 09/05/24 16:29 08/07/24 20:54 8 UNIT Insulin Human Regular 100 unit/ Sodium Chloride 101 ml @ 0 mls/hr PROTOCOL IV 08/05/24 14:30 08/06/24 14:17 DC 08/05/24 17:10 6.35 MLS/HR Lactated Ringer's (Lactated Ringers 1000ml) 1,000 ml ONCE IV 08/05/24 19:00 08/06/24 11:26 DC 08/05/24 19:02 1,000 ML Magnesium Sulfate 50 ml @ 0 mls/hr PROTOCOL IV 08/05/24 14:30 09/04/24 14:29 Metoprolol Tartrate (loprESSOR) 12.5 mg BID PO 08/06/24 11:30 08/07/24 10:16 DC 08/07/24 08:30 12.5 MG Multivitamins/ Minerals 10 ml/ Folic Acid 1 mg/ Thiamine HCl 100 mg/Sodium Chloride 1,010 ml @ 100 mls/hr DAILY IV 08/05/24 14:00 08/05/24 14:30 DC Pantoprazole Sodium (PROTonix 40MG INJ) 40 mg Q24H IVP 08/05/24 13:30 09/04/24 13:29 08/07/24 13:42 40 MG Piperacillin Sod/ Tazobactam Sod (Zosyn 3.375gm+NS 50ml) 3.375 gm ONCE IVPB 08/05/24 15:00 08/05/24 15:22 DC Piperacillin Sod/ Tazobactam Sod (Zosyn 3.375gm+NS 50ml) 3.375 gm ZOSY8 IVPB 08/05/24 21:00 08/15/24 20:59 08/08/24 05:11 3.375 GM Potassium Chloride 20 meq/ Sodium Chloride 1,010 ml @ 0 mls/hr PROTOCOL IV 08/05/24 14:30 08/06/24 14:17 DC Potassium Chloride/Dextrose/ Sod Cl 1,000 ml @ 0 mls/hr AD IV 08/05/24 14:30 08/06/24 14:17 DC 08/06/24 08:04 150 MLS/HR Sodium Chloride 1,000 ml @ 200 mls/hr PROTOCOL IV 08/05/24 14:30 08/06/24 14:17 DC Sodium Chloride (NS 50ml) 50 ml AD IV 08/05/24 15:02 08/06/24 07:28 DC 08/06/24 06:09 50 ML Thiamine HCl (Vitamin B-1) 200 mg Q24H IVP 08/05/24 13:30 09/04/24 13:29 08/07/24 13:42 200 MG CECILIA EID MD Aug 08, 2024 12:08
--- NOTE | 2024-08-08 12:09 | DS ---
Discharge Summary Hospital Course Summary: 74-year-old male with underlying history of hypertension, atrial fibrillation, type 2 diabetes mellitus, hyperlipidemia, history of coronary artery disease with prior history of multivessel CABG, presented to the ER for further evaluation of nausea, vomiting and poor oral intake. Symptoms have been ongoing for the past nine days with no significant improvement. Patient was seen as outpatient and was started on antiemetic with Zofran. He followed up today at [facility] clinic with no significant improvement of symptoms. He has lost about 19 lb over the last nice nine days. Reported recent diarrhea. Patient has a history of type 2 diabetes mellitus, and he is maintained on outpatient regimen with metformin, glipizide, Jardiance, and also Ozempic. Last dose of Ozempic was about two weeks ago. He has not been able to take any oral medication for about a week including metoprolol which he takes for atrial fibrillation. Denied being on outpatient anticoagulation. Reported he was diagnosed with atrial fibrillation after he had coronary artery bypass grafting about 11-12 years ago. On presentation to the hospital, patient was noted to be afebrile with heart rate trending between 120s-150s. Patient was noted to be in atrial fibrillation with RVR. [place] [address], hemoglobin of 20.2, platelet count of 416344. CMP remarkable for sodium of 138, potassium 4.5, creatinine of 1.6, lactic acid of 4.1, high sensitivity cardiac troponin of 78, AST of 53, ALT of 92, alkaline phosphatase of 141. Chest x-ray showed no acute infiltrates. Patient admitted to the intensive care unit, initiated on DKA protocol, prospecting driller consultation requested, recommendations followed. DKA resolved, patient placed off insulin drip, per prospecting driller recommended to continue insulin Lantus 10 units b.i.d., decreased high-dose as decided to medium dose SSI, prescription given for Lantus 20 units daily at home upon discharge, and to discontinue Jardiance at discharge and okay to resume other diabetic meds. During hospitalization patient evaluated by file machine operator. Patient with atrial fibrillation/atrial flutter in the setting of DKA, converted to sinus rhythm. Patient is started on Multaq 400 mg twice daily in order to maintain sinus rhythm. Recommended to discontinue metoprolol to avoid bradycardia. Patient to continue Eliquis 5 mg twice daily, aspirin 81 mg p.o. daily and atorvastatin 20 mg p.o. daily. Echocardiogram done during this admission reported as follows: Conclusion The cardiac chambers are normal in size. Mild concentric left ventricular hypertrophy. Sigmoid shaped septum noted. No regional wall motion abnormalities noted. Left ventricle systolic function is low normal, estimated LVEF 50 to 55%. Indeterminate diastolic dysfunction. Mild aortic regurgitation. Small size, freely mobile, filamentous structure seen on the aortic valve that is thought to be a Lambl's excursions. Clinical correlation is advised. Trace mitral regurgitation. Trace tricuspid regurgitation. RVSP is 12 mmHg. No pericardial effusion. At the time of my visit patient is hemodynamically stable, heart rate controlled, back in sinus rhythm, alert oriented x3, he denies dizziness, no headache, no blurry vision, no chest pain, no shortness a breath, no cough, no palpitations, no nausea, no vomiting, no abdominal pain, no diarrhea, no constipation, no melena, no hematochezia, no hematemesis, no hematuria, no dysuria. Plan for the patient to be discharged home today. Advertising Sales Representative(s): Critical Care, prospecting driller, file machine operator. Assessment/Plan: Final diagnosis Acute diabetic ketoacidosis, POA Severe dehydration with hemoconcentration, POA Atrial fibrillation with RVR, POA Acute kidney injury, POA Severe protein calorie malnutrition, POA History of SGLT2 inhibitor use as outpatient (Jardiance), POA History of Ozempic use as outpatient, POA Demand ischemia, POA Mild hepatitis, POA Leukocytosis, POA Debility/frailty, POA Intractable nausea and vomiting times nine days, POA Hypertension, POA Hyperlipidemia, POA Discharge Instructions: Patient to follow with her primary care physician, as well as file machine operator and prospecting driller as an outpatient. Advised to return to the hospital if his condition changes. Patient agreed with plan and understood the information provided. A prescription for Multaq and Eliquis provided to the patient. Prescription for insulin provided by prospecting driller. Home Medications: Active Scripts Dronedarone Hydrochloride (Multaq) 400 Mg Tablet, 400 MG PO BID for 30 Days, #60 TAB 1 Refill Prov:MARTHA SARKAR MD 08/08/24 Apixaban (Eliquis) 5 Mg Tablet, 5 MG PO BID for 30 Days, #60 TAB 1 Refill Prov:MARTHA SARKAR MD 08/08/24 Reported Medications Aspirin (ASPIRIN 81 MG ECTAB) 81 Mg Ectab, 81 MG PO DAILY, TAB.EC 08/06/24 Multivits-Min/FA/Lycopene/Lut (Centrum Silver Tablet) 0.4 Mg-300 Mcg-250 Mcg Tablet, 1 TAB PO DAILY, TAB 08/06/24 Nitroglycerin (Nitroglycerin) 0.3 Mg Tab.subl, 0.3 MG SL AD, TAB.SL 08/06/24 Losartan Potassium (Losartan Potassium) 25 Mg Tablet, 12.5 MG PO DAILY, TAB 08/06/24 Rosuvastatin Calcium (Rosuvastatin Calcium) 40 Mg Tablet, 1 TAB PO DAILY for high cholesterol, TAB 08/06/24 Famotidine (Famotidine) 20 Mg Tablet, 20 MG PO DAILY PRN for INDIGESTION, TAB 08/06/24 Glipizide (Glipizide) 5 Mg Tablet, 7.5 MG PO DAILY, TAB 08/06/24 Discontinued Reported Medications Empagliflozin (Jardiance) 25 Mg Tablet, 1 TAB PO DAILY, TAB 08/06/24 Metoprolol Tartrate (Metoprolol Tartrate) 50 Mg Tablet, 50 MG PO BID, TAB 08/06/24 New Medications: Apixaban (Eliquis) 5 Mg Tablet 5 MG PO BID for 30 Days, #60 TAB 1 Refill Dronedarone Hydrochloride (Multaq) 400 Mg Tablet 400 MG PO BID for 30 Days, #60 TAB 1 Refill Continued Medications: Aspirin (Aspirin 81 Mg Ectab) 81 Mg Ectab 81 MG PO DAILY, TAB.EC Famotidine (Famotidine) 20 Mg Tablet 20 MG PO DAILY PRN for INDIGESTION, TAB Glipizide (Glipizide) 5 Mg Tablet 7.5 MG PO DAILY, TAB Losartan Potassium (Losartan Potassium) 25 Mg Tablet 12.5 MG PO DAILY, TAB Multivits-Min/FA/Lycopene/Lut (Centrum Silver Tablet) 0.4 Mg-300 Mcg-250 Mcg Tablet 1 TAB PO DAILY, TAB Nitroglycerin (Nitroglycerin) 0.3 Mg Tab.subl 0.3 MG SL AD, TAB.SL Rosuvastatin Calcium (Rosuvastatin Calcium) 40 Mg Tablet 1 TAB PO DAILY for high cholesterol, TAB Discontinued Medications: Empagliflozin (Jardiance) 25 Mg Tablet 1 TAB PO DAILY, TAB Metoprolol Tartrate (Metoprolol Tartrate) 50 Mg Tablet 50 MG PO BID, TAB Time spent arranging discharge: 31-60 minutes MARTHA SARKAR MD Aug 08, 2024 12:09
--- NOTE | 2024-08-08 12:30 | NUR ---
DISCHARGED WITH VIA WHEELCHAIR TO AUTO. DISCHARGE INSTRUCTIONS REVIEWED. PRESCRIPTIONS HANDED TO PT WITH DISCHARGE PAPERS.
--- NOTE | 2024-08-08 14:13 | NUR ---
Pt got dc before RD could assess Addendum: 08/08/24 at [address] Amended: Links added.
--- NOTE | 2024-08-08 17:37 | PN ---
[facility] PROGRESS NOTE Late entry note. Date Patient Seen: Aug 08, 2024 Time of Visit: 18:37 Supervising Physician: Dr. Diaz Consult Physician: Hospitalist group Outpatient Specialists: [ ] Inpatient Consults: [ ] PROBLEM LIST: Diabetic ketoacidosis, POA resolved High anion gap metabolic acidosis, POA Intractable nausea and vomiting, POA NSTEMI, POA Leukocytosis, POA Severe dehydration, POA Electrolyte abnormality, POA Acute abdominal pain, POA Gallstone, POA DM type 2, with hyperglycemia, poorly controlled, current HGB A1c of 7.3 POA Hypertension, POA Hyperlipidemia, POA GERD, POA INTERVAL HISTORY: 08/06/2024: At the time of my evaluation, the patient is lying in bed. He is awake alert and verbally interactive with the appropriate responses. The patient is on room air and with optimal oxygen saturation. On the monitor, he is hemodynamically stable. He remains on heparin drip due to AFib/flutter. On chemistry, the patient has a sodium of 138, potassium of 3.6, chloride of 106, CO2 of 23, BUN 19, creatinine 1.0 and a blood glucose of 173 cumulative balance was + 2531.1. The patient with a gap of nine and remains on a insulin drip. No other complaint. 08/07/2024: At the time of my evaluation, the patient is lying in bed. The staff nurse reports no acute events overnight. The patient is awake alert and verbally interactive with the appropriate responses. He is on room air with optimal oxygen saturation. Vital signs are stable. On the monitor, the patient remains in sinus rhythm. I's and O's shows a cumulative balance of + 4242.2. CBC was unremarkable. Chemistry panel was notable for a potassium of 3.2. Blood cultures are in progress and showing no growth. The patient remains on antibiotic coverage with IV Zosyn. No other complaint. 08/08/2024: At the time of my evaluation, the patient was sitting up to the bedside chair. The staff nurse reports no acute events overnight. Vital signs and laboratory data was unremarkable. No acute events overnight. REVIEW OF SYSTEMS: 12 point ROS reviewed with patient. Pertinent positives mentioned above. Otherwise negative. PHYSICAL EXAM: GENERAL: alert, weak, awake oriented x 3 HEENT: EOMI, Sclera non icteric, moist mucosa NECK: Supple, no JVD, trachea midline LUNGS: Clear breath sounds bilaterally. No wheezes HEART: Sinus tach on the monitor, Normal S1 and S2, without murmurs ABD: Abdomen soft, nontender. Bowel sounds present EXT: No clubbing cyanosis or edema NEURO: Alert and oriented to person, follows commands Vital Signs (last 8hr) Date Time Temp Pulse Resp B/P (MAP) Pulse Ox O2 Delivery O2 Flow Rate FiO2 08/08/24 10:58 97.2 69 20 121/65 100 Room Air LABS: Hematology Labs: Test 08/08/24 04:19 Range/Units White Blood Count 5.7 4.8-10.8 K/uL Red Blood Count 4.00 L 4.50-6.20 MIL/uL Hemoglobin 12.7 L 14.0-18.0 g/dL Hematocrit 36.2 L 42-54 % Mean Corpuscular Volume 90.5 79-99 fL Mean Corpuscular Hemoglobin 31.8 27.0-33.0 pg Mean Corpuscular Hemoglobin Concent 35.1 32.0-36.0 g/dL Red Cell Distribution Width 12.4 11.0-15.5 % Platelet Count 109 L 130-400 K/uL Mean Platelet Volume 10.3 7.5-10.5 fL Immature Granulocyte % (Auto) 0.2 0-1 % Neutrophils (%) (Auto) 53.1 40.0-77.0 % Lymphocytes (%) (Auto) 30.0 21.0-51.0 % Monocytes (%) (Auto) 10.4 3.0-13.0 % Eosinophils (%) (Auto) 5.8 0.0-8.0 % Basophils (%) (Auto) 0.5 0.0-5.0 % Neutrophils # (Auto) 3.0 1.8-7.7 K/uL Lymphocytes # (Auto) 1.7 1.0-4.8 K/uL Monocytes # (Auto) 0.6 0.1-1.0 K/uL Eosinophils # (Auto) 0.33 0.00-0.70 K/uL Basophils # (Auto) 0.03 0.00-0.20 K/uL Absolute Immature Granulocyte (auto 0.01 0-1 K/uL Nucleated Red Blood Cells 0.0 0.0-0.19 % Chemistry Labs: Test 08/08/24 07:39 08/08/24 04:19 08/07/24 04:38 Range/Units Whole Blood Glucose 75 # 70-110 MG/DL Sodium Level 141 136-145 mmol/L Potassium Level 3.5 3.5-5.1 mmol/L Chloride Level 107 101-111 mmol/L Carbon Dioxide Level 32 21-32 mmol/L Blood Urea Nitrogen 13 7-18 mg/dL Creatinine 0.8 0.5-1.3 mg/dL Glomerular Filtration Rate Calc 92 >90 mL/min Random Glucose 74 70-105 mg/dL Total Calcium 8.0 L 8.5-10.1 mg/dL Total Bilirubin 1.4 H 0.2-1.0 mg/dL Direct Bilirubin 0.4 H 0.0-0.3 mg/dL Aspartate Amino Transf (AST/SGOT) 52 H 10-37 U/L Alanine Aminotransferase (ALT/SGPT) 60 12-78 U/L Alkaline Phosphatase 75 50-136 U/L Total Protein 5.4 L 6.0-8.3 g/dL Albumin 2.5 L 3.5-5.0 g/dL DIAGNOSTICS / RADIOLOGY RESULTS: [ ] PLAN 08/07/2024: For now, going to continue current management for the patient. We will continue to monitor for any arrhythmias. The patient was started on Multaq for management of his AFib and continues on apixaban. The patient continues on Lantus 10 units b.i.d. and insulin per sliding scale. Blood glucose trend have improved, most recently a blood glucose of 126. Patient reports feeling much better today. We will continue to monitor the patient's progress and response to management. We will continue to provide general supportive care, GI and DVT prophylaxis. Further orders per attending MD and hospital course. 08/08/2024: After reviewing the case and discussing with the patient, he was eager for discharge home today. Blood glucose trend has significantly improved. I did discuss with the patient the importance of controlling his blood glucose to avoid recurrence of his recent DKA episode. He is to follow up with his PCP and treating specialist as scheduled. From the critical Care standpoint, no objection for discharge home today. NEURO: Minimize central acting medications as possible. Maintain fall precautions, adequate lighting during the day PULMONARY: Supplemental 02 as needed. Maintain aspiration precautions at all times CARDIOVASCULAR: Follow hemodynamics. Vital signs per facility protocol GI & NUTRITION: Continue with nutritional support. Continue stool softeners and laxatives as needed. KIDNEYS & ELECTROLYTES: Strict monitoring of intake, output and overall fluid balance. Avoid nephrotoxic medications to the extent possible. Medications to be dosed according to renal function. Monitor electrolytes and replace as needed ENDOCRINE: Maintain blood glucose between 100-180 at all times. Hypoglycemia protocol in place INFECTIOUS DISEASE: Trend temperature, WBC and procalcitonin level Follow cultures, deescalate antibiotics as soon as possible. Panculture if new onset fever ONCOLOGY/HEMATOLOGY/COAGULATION: Monitor for s/s of bleeding Monitor hemoglobin, coagulation studies as needed SKIN: Pressure ulcer prevention per facility protocol Specialty mattress ORTHO/REHAB: Continue PT/OT Prophylaxis: Continue GI and DVT prophylaxis Code Status: Full Resuscitation Disposition: TBD Other: Total patient care time exceeds 35 minutes excluding all procedures. PHUONG MORALES NP Aug 08, 2024 17:37
== END 2024-08-08 13:16 | disposition home or self-care (01) | DRG 871 ==
LOC: EDH 12:08 → EDHIP 13:22 → 2CH 15:41
PROVIDERS: ADMIT Internal Medicine; ATTEND Internal Medicine
DX: A41.9 Sepsis, unspecified organism (principal); E11.10 Type 2 diabetes mellitus with ketoacidosis without coma; E43 Unspecified severe protein-calorie malnutrition; I21.A1 Myocardial infarction type 2; I48.92 Unspecified atrial flutter; N17.9 Acute kidney failure, unspecified; E86.0 Dehydration; I48.0 Paroxysmal atrial fibrillation; I10 Essential (primary) hypertension; E78.5 Hyperlipidemia, unspecified; A08.4 Viral intestinal infection, unspecified; K80.20 Calculus of gallbladder without cholecystitis without obstruction; R54 Age-related physical debility; E11.65 Type 2 diabetes mellitus with hyperglycemia; E87.8 Other disorders of electrolyte and fluid balance, not elsewhere classified; K21.9 Gastro-esophageal reflux disease without esophagitis; D64.9 Anemia, unspecified; D69.6 Thrombocytopenia, unspecified; I25.10 Atherosclerotic heart disease of native coronary artery without angina pectoris; K75.9 Inflammatory liver disease, unspecified; R65.20 Severe sepsis without septic shock; Z79.82 Long term (current) use of aspirin; Z79.01 Long term (current) use of anticoagulants; Z79.84 Long term (current) use of oral hypoglycemic drugs; Z79.4 Long term (current) use of insulin; Z79.899 Other long term (current) drug therapy; Z95.1 Presence of aortocoronary bypass graft; Z68.24 Body mass index [BMI] 24.0-24.9, adult
CPT/HCPCS: 36415; 36600; 70450; 71045; 74176; 76705; 80048; 80053; 80076; 81001; 82010; 82435; 82550; 82803; 82947; 82948; 83036; 83605; 83735; 83880; 84100; 84132; 84145; 84295; 84443; 84484; 84550; 85025; 85610; 85651; 85730; 86341; 86850; 86900; 86901; 87040; 87635; 87804; 93005; 93306; 93356; 96374; 99285; G0378; J1644; J1815; J2405; J2470; J2543; J3411; J3480; J3490; J7030